=== PATIENT | male | born 1940 | race African-American/Black ===

== ENCOUNTER 2020-02-13 15:54 | Inpatient (IN) ==
[2020-02-13] MEDS ORDERED: Piperacillin/Tazobactam 3.375 GM in Water for inj. (sterile) 20 ML IVP ONE (16:04)
[2020-02-13] MEDS ORDERED: 0.9 % Sodium Chloride 1,000 ML IVC ONE ×2 (16:04→17:23)
[2020-02-13 16:51] LABS: VBG HCO3 24 mEq/L (21-27); VBG PCO2 47 mmHg (41-51); VBG PH 7.32 pH Units (7.32-7.42); VBG PO2 39 mmHg (25-50)
[2020-02-13 16:55] LABS: Hemoglobin 13.7 g/dL (12.9-16.9); Mean Corpuscular HGB Conc 32.6 g/dL (31.6-35.5); Mean Corpuscular Hemoglobin 28.7 pg (28.0-33.3); Mean Corpuscular Volume 88.1 fL (83.0-100.0); Mean Platelet Volume 10.7 fL (9.4-12.4); Platelet Count 225 K/mcL (140-400); Red Blood Count 4.77 M/mcL (4.19-5.50); Red Cell Distribution Width 14.7 % (11.5-14.5); White Blood Count 17.9 K/mcL (4.3-11.1)
[2020-02-13 17:09] LABS: INR 1.3; Prothrombin Time 14.2 Seconds (9.4-12.1)
[2020-02-13 17:12] LABS: Activated Partial Thrombo Time 31.2 Seconds (26.0-36.0)
[2020-02-13 17:27] LABS: Albumin 3.2 g/dL (3.5-5.7); Albumin/Globulin Ratio 0.8 (1.1-2.2); Bilirubin,Direct 0.5 mg/dL (0.0-0.2); Bilirubin,Indirect 0.4 mg/dL (0.0-1.0); Bilirubin,Total 0.9 mg/dL (0.3-1.0); Calcium 8.7 mg/dL (8.6-10.3); Globulin 4.2 g/dL (2.4-3.5); Magnesium 2.1 mg/dL (1.6-2.6); Phosphorous 3.9 mg/dL (2.7-4.5); Potassium 3.9 mEq/L (3.5-5.1); Total Protein 7.4 g/dL (6.4-8.9); Troponin I 0.38 ng/mL (< 0.04)
[2020-02-13] MEDS ORDERED: Aspirin 325 MG TABLET PO ONE (17:30)
[2020-02-13 17:33] LABS: Lymphocytes # 0.4 K/mcL (0.6-4.6); Monocytes # 0.4 K/mcL (0.0-1.3); Neutrophils # 17.2 K/mcL (1.6-8.9)
[2020-02-13 17:34] LABS: Platelet Estimate Normal (Normal)
[2020-02-13] MEDS: DilTIAZem 50 MG in 0.9 % Sodium Chloride 40 ML IVC SCH ×2 (18:11→22:39)
[2020-02-13 18:14] LABS: Bilirubin,Urine Negative (Negative); Blood,Urine Large (Negative); Clarity,Urine Cloudy (Clear); Color,Urine Yellow (Yellow); Glucose,Urine (UA) >=1000 mg/dL (Normal); Ketones,Urine Negative (Negative); Leukocyte Esterase,Urine Negative (Negative); Nitrite,Urine Negative (Negative); Protein,Urine 100 mg/dL (Neg-Trace); Specific Gravity,Urine 1.023 (1.010-1.025); Urobilinogen,Urine Normal (Normal)
[2020-02-13 18:16] LABS: Bacteria,Urine None Seen per hpf (None-Few); Hyaline Casts,Urine None Seen per lpf (None-Few); Squamous Epithelial Cell,Urine Many per lpf (None-Few)
[2020-02-13] MEDS ORDERED: Insulin Regular, Human 100 UNIT/ML SQ ONE (18:16)
[2020-02-13] MEDS ORDERED: *HR* Heparin 5,000 UNIT/ML VIAL IVP PRN ×2 (18:17)
[2020-02-13] MEDS ORDERED: *HR* Heparin 5,000 UNIT/ML VIAL IVP ONE (18:17)
[2020-02-13] MEDS: Heparin 25,000 UNIT/250 ML D5W 25,000 UNIT/250 ML IV.SOLN IVC SCH (19:02)
[2020-02-13] MEDS ORDERED: Insulin Regular, Human 100 UNIT/ML IV PRN (19:48)
[2020-02-13] MEDS ORDERED: Naloxone 0.4 MG/ML INJ IVP PRN ×2 (19:48→22:27)
[2020-02-13] MEDS ORDERED: *HR* Dextrose 50 % in Water (Syg) 50 ML SYRINGE IVP PRN (19:48)
[2020-02-13] MEDS ORDERED: Insulin Human Regular 100 UNIT in 0.9 % Sodium Chloride 100 ML IVC SCH (20:00)
[2020-02-13] MEDS ORDERED: Vancomycin (wt based) 1,000 MG VIAL IVPB SCH (20:00)
[2020-02-13] MEDS: 0.9 % Sodium Chloride 1,000 ML IVC SCH (21:20)
[2020-02-13 21:47] LABS: Troponin I 0.37 ng/mL (< 0.04)
[2020-02-13 22:01] LABS: Estimated Average Glucose 212 mg/dl
[2020-02-13 22:59] LABS: C-Reactive Protein > 300 mg/L (Less than 10); Creatine Kinase 2272 Units/L (30-223)
[2020-02-14] MEDS ORDERED: *HR* Metoprolol 5 MG/5 ML VIAL IVP ONE ×8 (00:40→22:52)
[2020-02-14] MEDS: DilTIAZem 50 MG in 0.9 % Sodium Chloride 40 ML IVC SCH ×2 (00:48→02:52)
[2020-02-14] MEDS ORDERED: D5% in Water 1,000 ML IVC PRN (00:58)
[2020-02-14] MEDS ORDERED: Insulin DETEMIR 100 UNIT/ML X5UNITS SQ ONE (00:58)
[2020-02-14] MEDS ORDERED: Dextrose Gel 15 GM/37.5 ML TUBE PO PRN ×2 (00:58)
[2020-02-14] MEDS ORDERED: *HR* Dextrose 50 % in Water (Syg) 50 ML SYRINGE IVP PRN (00:58)
[2020-02-14] MEDS: MetroNIDAZOLE 500 MG/100 ML 500 MG/100 ML BAG IVPB SCH ×2 (01:10→09:12)
[2020-02-14] MEDS: Insulin LISPRO 300 UNITS/3 ML VIAL SQ SCH ×3 (01:34→12:18)
[2020-02-14 03:02] LABS: Hematocrit 33.4 % (37.5-50.1); Mean Corpuscular HGB Conc 33.8 g/dL (31.6-35.5); Mean Corpuscular Hemoglobin 29.7 pg (28.0-33.3); Mean Corpuscular Volume 87.7 fL (83.0-100.0); Mean Platelet Volume 10.7 fL (9.4-12.4); Platelet Count 195 K/mcL (140-400); Red Blood Count 3.81 M/mcL (4.19-5.50); Red Cell Distribution Width 14.8 % (11.5-14.5); White Blood Count 18.8 K/mcL (4.3-11.1)
[2020-02-14 03:07] LABS: Hemoglobin 11.3 g/dL (12.9-16.9)
[2020-02-14 03:18] LABS: Albumin 2.5 g/dL (3.5-5.7); Albumin/Globulin Ratio 0.8 (1.1-2.2); Bilirubin,Total 0.8 mg/dL (0.3-1.0); Calcium 7.7 mg/dL (8.6-10.3); Globulin 3.3 g/dL (2.4-3.5); Phosphorous 2.9 mg/dL (2.7-4.5); Potassium 4.1 mEq/L (3.5-5.1); Total Protein 5.8 g/dL (6.4-8.9)
[2020-02-14] MEDS ORDERED: Amiodarone Premix 150 MG/100 ML BAG IVPB ONE (03:21)
[2020-02-14] MEDS ORDERED: Amiodarone Premix 360 MG/200 ML BAG IVC ONE (03:21)
[2020-02-14] MEDS ORDERED: Amiodarone Premix 360 MG/200 ML BAG IVC SCH (03:30)
[2020-02-14 03:40] LABS: Hepatitis B Surface Antigen Nonreactive (Nonreactive)
[2020-02-14 04:03] LABS: Lymphocytes # 0.8 K/mcL (0.6-4.6); Neutrophils # 18.1 K/mcL (1.6-8.9); Platelet Estimate Normal (Normal)
[2020-02-14 04:09] LABS: Hepatitis B Core IgM Nonreactive (Nonreactive)
[2020-02-14 04:11] LABS: Hepatitis A Antibody IgM Nonreactive (Nonreactive); Hepatitis C Virus Antibody Nonreactive (Nonreactive)
[2020-02-14 05:10] LABS: ABG Base Excess -5 mEq/L (-2 to 3); ABG HCO3 17 mEq/L (21-27); ABG Oxygen Saturation 98 % (95-98); ABG PCO2 24 mmHg (35-45); ABG PH 7.46 pH Units (7.32-7.45); ABG PO2 102 mmHg (85-104); ABG TCO2 18 mEq/L (20-26)
[2020-02-14] MEDS: Calcium Gluconate 1gm/50mL 1 GM/50 ML BAG IVPB SCH ×3 (05:52→07:38)
[2020-02-14] MEDS ORDERED: Cefepime HCl 1,000 MG in Water for inj. (sterile) 10 ML IVP SCH (06:00)
[2020-02-14 06:58] LABS: Acinetobacter baumannii by PCR Not Detected (Not Detect); Candida albicans by PCR Not Detected (Not Detect); Candida glabrata by PCR Not Detected (Not Detect); Candida krusei by PCR Not Detected (Not Detect); Candida parapsilosis by PCR Not Detected (Not Detect); Candida tropicalis by PCR Not Detected (Not Detect); Enterobacter cloacae Cmplx PCR Not Detected (Not Detect); Enterobacteriaceae by PCR Not Detected (Not Detect); Enterococcus by PCR Not Detected (Not Detect); Escherichia coli by PCR Not Detected (Not Detect); Klebsiella oxytoca by PCR Not Detected (Not Detect); Klebsiella pneumoniae by PCR Not Detected (Not Detect); Proteus by PCR Not Detected (Not Detect); Pseudomonas aeruginosa by PCR Not Detected (Not Detect); Serratia marcescens by PCR Not Detected (Not Detect); Staphylococcus aureus by PCR Not Detected (Not Detect); Staphylococcus by PCR Not Detected (Not Detect); Streptococcus agalactiae(B)PCR Not Detected (Not Detect); Streptococcus pneumoniae PCR Not Detected (Not Detect); Streptococcus pyogenes (A) PCR DETECTED (Not Detect)
[2020-02-14] MEDS ORDERED: Clindamycin 900 MG/50 ML 900 MG/50 ML IV.SOLN IVPB SCH (08:11)
[2020-02-14] MEDS ORDERED: Acetaminophen IV 1,000 MG/100 ML INFUS..BTL IVPB PRN (08:23)
[2020-02-14] MEDS ORDERED: Aminoglycoside Consult 1 EACH MC ONE (08:28)
[2020-02-14 10:49] LABS: Hematocrit 29.9 % (37.5-50.1); Hemoglobin 9.5 g/dL (12.9-16.9); Mean Corpuscular HGB Conc 31.8 g/dL (31.6-35.5); Mean Corpuscular Hemoglobin 28.7 pg (28.0-33.3); Mean Corpuscular Volume 90.3 fL (83.0-100.0); Mean Platelet Volume 11.3 fL (9.4-12.4); Nucleated Red Blood Cells 0.1 /100 WBC (0); Platelet Count 189 K/mcL (140-400); Red Blood Count 3.31 M/mcL (4.19-5.50); White Blood Count 18.9 K/mcL (4.3-11.1)
[2020-02-14 11:00] LABS: Lymphocytes # 1.5 K/mcL (0.6-4.6); Monocytes # 0.4 K/mcL (0.0-1.3)
[2020-02-14 11:02] LABS: Dohle Bodies Present (Not Present); Platelet Estimate Normal (Normal); Toxic Granulation Present (Not Present)
[2020-02-14] MEDS: Heparin 25,000 UNIT/250 ML D5W 25,000 UNIT/250 ML IV.SOLN IVC SCH (11:16)
[2020-02-14] MEDS ORDERED: Piperacillin/Tazobactam 3.375 GM in 0.9 % Sodium Chloride Mini Bag 100 ML IVPB SCH (12:00)
[2020-02-14] MEDS: Pantoprazole 40 MG VIAL IVP SCH ×2 (12:17→17:32)
[2020-02-14] MEDS ORDERED: Vancomycin 500 MG in 0.9 % Sodium Chloride Mini Bag 100 ML IVPB ONE (12:22)
[2020-02-14] MEDS ORDERED: E-Z-PAQUE (BARIUM SULF) SUSP 1 BOTTLE PO ONE (12:55)
[2020-02-14] MEDS ORDERED: E-Z-HD (BARIUM SULF) SUSPENSION PO ONE (12:55)
[2020-02-14] MEDS ORDERED: *HR* Digoxin 0.5 MG/2 ML AMPUL IVP ONE (13:20)
[2020-02-14] MEDS ORDERED: 0.9 % Sodium Chloride 1,000 ML IVC ONE ×2 (13:21→14:38)
[2020-02-14] MEDS ORDERED: 0.9 % Sodium Chloride 1,000 ML IVC SCH (13:30)
[2020-02-14] MEDS ORDERED: Potassium Phosphate 44 MEQ in 0.9 % Sodium Chloride 250 ML IVPB PRN (15:36)
[2020-02-14] MEDS: *HR* Metoprolol 5 MG/5 ML VIAL IVP SCH ×3 (16:40→23:23)
[2020-02-14] MEDS: cefTRIAXone 2,000 MG in Water for inj. (sterile) 20 ML IVP SCH (16:41)
[2020-02-14] MEDS: Clindamycin 600 MG/50 ML 600 MG/50 ML IV.SOLN IVPB SCH ×2 (16:41→23:18)
[2020-02-14 16:54] LABS: Mean Corpuscular HGB Conc 32.1 g/dL (31.6-35.5); Mean Corpuscular Hemoglobin 29.1 pg (28.0-33.3); Mean Corpuscular Volume 90.6 fL (83.0-100.0); Mean Platelet Volume 11.2 fL (9.4-12.4); Platelet Count 179 K/mcL (140-400); Red Blood Count 3.09 M/mcL (4.19-5.50); Red Cell Distribution Width 15.1 % (11.5-14.5); White Blood Count 15.7 K/mcL (4.3-11.1)
[2020-02-14 17:03] LABS: VBG Ionized Calcium 1.05 mmol/L (1.15-1.35)
[2020-02-14] MEDS: Insulin Human Regular 100 UNIT in 0.9 % Sodium Chloride 100 ML IVC SCH ×2 (17:08→23:18)
[2020-02-14] MEDS: 0.9 % Sodium Chloride 1,000 ML IVC SCH (17:19)
[2020-02-14] MEDS: *HR* Digoxin 0.5 MG/2 ML AMPUL IVP SCH (17:32)
[2020-02-14] MEDS: Ringers Solution, Lactated 1,000 ML IVC SCH (20:13)
[2020-02-14] MEDS: *HR* Digoxin 0.5 MG/2 ML AMPUL IVP ONE (21:35)
[2020-02-14 22:55] LABS: Calcium 7.5 mg/dL (8.6-10.3)
[2020-02-14] MEDS ORDERED: Perflutren Lipid Microsphere 1.3 ML in 0.9 % Sodium Chloride 8.7 ML IVP ONE (23:08)
[2020-02-15] MEDS: *HR* Digoxin 0.5 MG/2 ML AMPUL IVP SCH (00:42)
[2020-02-15] MEDS: *HR* Digoxin 0.5 MG/2 ML AMPUL IVP ONE (00:42)
[2020-02-15] MEDS ORDERED: Norepinephrine 4 MG in 0.9 % Sodium Chloride 250 ML IVC SCH (00:45)
[2020-02-15] MEDS ORDERED: Phenylephrine 10 MG in 0.9 % Sodium Chloride 250 ML IVC SCH (00:45)
[2020-02-15] MEDS: *HR* Metoprolol 5 MG/5 ML VIAL IVP SCH ×9 (01:48→19:34)
[2020-02-15] MEDS: Calcium Gluconate 1gm/50mL 1 GM/50 ML BAG IVPB PRN (02:04)
[2020-02-15 02:12] LABS: Hemoglobin 9.6 g/dL (12.9-16.9)
[2020-02-15 03:17] LABS: Hematocrit 29.7 % (37.5-50.1); Hemoglobin 9.5 g/dL (12.9-16.9); Mean Corpuscular Hemoglobin 28.3 pg (28.0-33.3); Mean Corpuscular Volume 88.4 fL (83.0-100.0); Mean Platelet Volume 10.7 fL (9.4-12.4); Nucleated Red Blood Cells 0.2 /100 WBC (0); Platelet Count 204 K/mcL (140-400); Red Blood Count 3.36 M/mcL (4.19-5.50); Red Cell Distribution Width 14.9 % (11.5-14.5); White Blood Count 18.9 K/mcL (4.3-11.1)
[2020-02-15 03:38] LABS: Blood Urea Nitrogen > 130 mg/dL (8-23); Calcium 8.1 mg/dL (8.6-10.3); Carbon Dioxide 16 mEq/L (23-29); Chloride 113 mEq/L (98-107); Glucose 93 mg/dL (70-105); Magnesium 2.2 mg/dL (1.6-2.6); Phosphorous 4.4 mg/dL (2.7-4.5); Potassium 4.5 mEq/L (3.5-5.1); Sodium 142 mEq/L (136-145); eGFR For African Americans 16 (> 60); eGFR For Non-African Americans 13 (> 60)
[2020-02-15 04:56] LABS: Lymphocytes # 0.4 K/mcL (0.6-4.6); Neutrophils # 18.5 K/mcL (1.6-8.9); Platelet Estimate Normal (Normal)
[2020-02-15 04:57] LABS: Anisocytosis 1+ (Not Present); Dohle Bodies Present (Not Present); Polychromasia 1+ (Not Present)
[2020-02-15] MEDS: Ringers Solution, Lactated 1,000 ML IVC SCH ×3 (05:17→23:50)
[2020-02-15] MEDS: Pantoprazole 40 MG VIAL IVP SCH ×2 (05:24→16:25)
[2020-02-15] MEDS ORDERED: Sodium Bicarbonate 50 MEQ/50 ML VIAL IVP ONE (07:23)
[2020-02-15 07:28] LABS: ABG Base Excess -9 mEq/L (-2 to 3); ABG HCO3 16 mEq/L (21-27); ABG Oxygen Saturation 96 % (95-98); ABG PCO2 32 mmHg (35-45); ABG PH 7.31 pH Units (7.32-7.45); ABG PO2 91 mmHg (85-104); ABG TCO2 17 mEq/L (20-26)
[2020-02-15] MEDS: Clindamycin 600 MG/50 ML 600 MG/50 ML IV.SOLN IVPB SCH ×3 (08:48→23:13)
[2020-02-15 09:04] LABS: INR 1.3; Prothrombin Time 15.1 Seconds (9.4-12.1)
[2020-02-15] MEDS ORDERED: 0.9 % Sodium Chloride 1,000 ML IVC SCH (09:15)
[2020-02-15] MEDS ORDERED: Lidocaine -MPF 1% 5 ML AMPUL INFILT ONE (09:16)
[2020-02-15 09:18] LABS: Chol/HDL Ratio 5.6 (0-4.9)
[2020-02-15 10:01] LABS: Troponin I 0.33 ng/mL (< 0.04)
[2020-02-15 14:29] LABS: Hematocrit 33.7 % (37.5-50.1); Hemoglobin 10.6 g/dL (12.9-16.9); Mean Corpuscular HGB Conc 31.5 g/dL (31.6-35.5); Mean Corpuscular Hemoglobin 28.6 pg (28.0-33.3); Mean Corpuscular Volume 90.8 fL (83.0-100.0); Mean Platelet Volume 10.9 fL (9.4-12.4); Platelet Count 228 K/mcL (140-400); Red Blood Count 3.71 M/mcL (4.19-5.50); Red Cell Distribution Width 15.4 % (11.5-14.5); White Blood Count 21.4 K/mcL (4.3-11.1)
[2020-02-15] MEDS: cefTRIAXone 2,000 MG in Water for inj. (sterile) 20 ML IVP SCH (16:25)
[2020-02-16 05:28] LABS: Calcium 8.2 mg/dL (8.6-10.3); Magnesium 2.2 mg/dL (1.6-2.6); Phosphorous 3.7 mg/dL (2.7-4.5); Potassium 4.2 mEq/L (3.5-5.1)
[2020-02-16 05:53] LABS: Basophils % 0.2 %; Eosinophils % 0.1 %; Hematocrit 30.4 % (37.5-50.1); Hemoglobin 9.9 g/dL (12.9-16.9); Immature Granulocytes % 0.8 % (0-4); Lymphocytes # 0.8 K/mcL (0.6-4.6); Mean Corpuscular HGB Conc 32.6 g/dL (31.6-35.5); Mean Corpuscular Hemoglobin 29.1 pg (28.0-33.3); Mean Corpuscular Volume 89.4 fL (83.0-100.0); Mean Platelet Volume 11.2 fL (9.4-12.4); Monocytes # 0.3 K/mcL (0.0-1.3); Monocytes % 1.5 %; Neutrophils # 18.7 K/mcL (1.6-8.9); Platelet Count 213 K/mcL (140-400); Red Cell Distribution Width 15.3 % (11.5-14.5); Segmented Neutrophils % 93.4 %
[2020-02-16] MEDS: Pantoprazole 40 MG VIAL IVP SCH ×2 (06:04→15:46)
[2020-02-16] MEDS: Clindamycin 600 MG/50 ML 600 MG/50 ML IV.SOLN IVPB SCH ×3 (08:37→23:06)
[2020-02-16 11:51] LABS: VBG Ionized Calcium 0.99 mmol/L (1.15-1.35)
[2020-02-16] MEDS: Calcium Gluconate 1gm/50mL 1 GM/50 ML BAG IVPB PRN (13:35)
[2020-02-16] MEDS: Ringers Solution, Lactated 1,000 ML IVC SCH ×2 (15:37→20:53)
[2020-02-16] MEDS: risperiDONE 0.25 MG TABLET PO SCH (15:37)
[2020-02-16] MEDS: cefTRIAXone 2,000 MG in Water for inj. (sterile) 20 ML IVP SCH (15:46)
[2020-02-16] MEDS: Phenylephrine 10 MG in 0.9 % Sodium Chloride 250 ML IVC SCH ×2 (16:45→23:13)
[2020-02-16 16:46] LABS: Hematocrit 26.6 % (37.5-50.1); Hemoglobin 8.5 g/dL (12.9-16.9); Mean Corpuscular Hemoglobin 28.8 pg (28.0-33.3); Mean Corpuscular Volume 90.2 fL (83.0-100.0); Mean Platelet Volume 11.2 fL (9.4-12.4); Platelet Count 222 K/mcL (140-400); Red Blood Count 2.95 M/mcL (4.19-5.50); Red Cell Distribution Width 15.4 % (11.5-14.5); White Blood Count 19.6 K/mcL (4.3-11.1)
[2020-02-16 16:52] LABS: INR 1.6; Prothrombin Time 17.9 Seconds (9.4-12.1)
[2020-02-16 17:07] LABS: Alanine Aminotransferase 61 Units/L (7-52); Albumin 2.2 g/dL (3.5-5.7); Albumin/Globulin Ratio 0.7 (1.1-2.2); Alkaline Phosphatase 90 Units/L (34-104); Aspartate Amino Transferase 51 Units/L (13-39); Bilirubin,Total 0.3 mg/dL (0.3-1.0); Blood Urea Nitrogen > 130 mg/dL (8-23); Calcium 7.9 mg/dL (8.6-10.3); Carbon Dioxide 16 mEq/L (23-29); Chloride 119 mEq/L (98-107); Globulin 3.2 g/dL (2.4-3.5); Glucose 243 mg/dL (70-105); Potassium 4.4 mEq/L (3.5-5.1); Sodium 145 mEq/L (136-145); Total Protein 5.4 g/dL (6.4-8.9); eGFR For African Americans 13 (> 60); eGFR For Non-African Americans 11 (> 60)
[2020-02-16] MEDS ORDERED: Ringers Solution, Lactated 1,000 ML IVC ONE (18:10)
[2020-02-16 18:38] LABS: Troponin I 0.27 ng/mL (< 0.04)
[2020-02-16] MEDS: Insulin Human Regular 100 UNIT in 0.9 % Sodium Chloride 100 ML IVC SCH (18:40)
[2020-02-16] MEDS: Albumin Human 5% 12.5 GM/250 ML IV.SOLN IVC SCH ×2 (18:43→22:53)
[2020-02-17 00:12] LABS: Protein/Creatinine Ratio,Urine 0.91 mg/mg (0.00-0.20); Sodium, Urine 52.2 mEq/L
[2020-02-17 00:21] LABS: Blood Urea Nitrogen > 130 mg/dL (8-23); Carbon Dioxide 17 mEq/L (23-29); Chloride 120 mEq/L (98-107); Glucose 103 mg/dL (70-105); Potassium 4.2 mEq/L (3.5-5.1); Sodium 149 mEq/L (136-145); eGFR For African Americans 13 (> 60); eGFR For Non-African Americans 11 (> 60)
[2020-02-17 00:53] LABS: Bilirubin,Urine Negative (Negative); Blood,Urine Moderate (Negative); Clarity,Urine Clear (Clear); Color,Urine Yellow (Yellow); Glucose,Urine (UA) Normal (Normal); Ketones,Urine Negative (Negative); Leukocyte Esterase,Urine Negative (Negative); Nitrite,Urine Negative (Negative); PH,Urine 5.5 pH Units (5.0-8.0); Protein,Urine Trace mg/dL (Neg-Trace); Urobilinogen,Urine Normal (Normal)
[2020-02-17] MEDS: Pantoprazole 40 MG VIAL IVP SCH ×2 (05:15→18:04)
[2020-02-17 06:36] LABS: Basophils % 0.2 %; Eosinophils # 0.1 K/mcL (0.0-0.6); Eosinophils % 0.4 %; Hematocrit 24.6 % (37.5-50.1); Immature Granulocytes % 2.1 % (0-4); Lymphocytes # 0.9 K/mcL (0.6-4.6); Lymphocytes % 4.9 %; Mean Corpuscular HGB Conc 32.5 g/dL (31.6-35.5); Mean Corpuscular Hemoglobin 29.2 pg (28.0-33.3); Mean Corpuscular Volume 89.8 fL (83.0-100.0); Mean Platelet Volume 10.9 fL (9.4-12.4); Monocytes # 0.2 K/mcL (0.0-1.3); Monocytes % 1.3 %; Neutrophils # 16.6 K/mcL (1.6-8.9); Nucleated Red Blood Cells 0.2 /100 WBC (0); Platelet Count 214 K/mcL (140-400); Red Blood Count 2.74 M/mcL (4.19-5.50); Red Cell Distribution Width 15.4 % (11.5-14.5); Segmented Neutrophils % 91.1 %; White Blood Count 18.3 K/mcL (4.3-11.1)
[2020-02-17 07:07] LABS: Blood Urea Nitrogen > 130 mg/dL (8-23); Calcium 8.1 mg/dL (8.6-10.3); Carbon Dioxide 17 mEq/L (23-29); Chloride 118 mEq/L (98-107); Glucose 139 mg/dL (70-105); Magnesium 2.4 mg/dL (1.6-2.6); Phosphorous 6.9 mg/dL (2.7-4.5); Potassium 4.4 mEq/L (3.5-5.1); Sodium 151 mEq/L (136-145); eGFR For African Americans 14 (> 60); eGFR For Non-African Americans 12 (> 60)
[2020-02-17] MEDS: Clindamycin 600 MG/50 ML 600 MG/50 ML IV.SOLN IVPB SCH ×3 (08:33→23:06)
[2020-02-17] MEDS: risperiDONE 0.25 MG TABLET PO SCH ×2 (08:34→12:36)
[2020-02-17] MEDS ORDERED: *HR* Metoprolol 5 MG/5 ML VIAL IVP PRN (10:06)
[2020-02-17] MEDS: Phenylephrine 10 MG in 0.9 % Sodium Chloride 250 ML IVC SCH ×2 (10:43→15:00)
[2020-02-17] MEDS: Ringers Solution, Lactated 1,000 ML IVC SCH (10:46)
[2020-02-17] MEDS: Albumin Human 5% 12.5 GM/250 ML IV.SOLN IVC SCH ×2 (11:18→18:00)
[2020-02-17 11:34] LABS: Troponin I 0.26 ng/mL (< 0.04)
[2020-02-17 12:04] LABS: Albumin 2.5 g/dL (3.5-5.7); Albumin/Globulin Ratio 0.8 (1.1-2.2); Bilirubin,Direct 0.1 mg/dL (0.0-0.2); Bilirubin,Indirect 0.3 mg/dL (0.0-1.0); Bilirubin,Total 0.4 mg/dL (0.3-1.0); Globulin 3.2 g/dL (2.4-3.5); Total Protein 5.7 g/dL (6.4-8.9)
[2020-02-17] MEDS: *HR* Metoprolol 5 MG/5 ML VIAL IVP PRN ×5 (12:30→23:48)
[2020-02-17] MEDS: Insulin LISPRO 300 UNITS/3 ML VIAL SQ SCH ×4 (12:37→23:20)
[2020-02-17 15:01] LABS: Hematocrit 26.1 % (37.5-50.1); Hemoglobin 8.3 g/dL (12.9-16.9)
[2020-02-17] MEDS: cefTRIAXone 2,000 MG in Water for inj. (sterile) 20 ML IVP SCH (18:03)
[2020-02-17] MEDS ORDERED: Albumin Human 5% 12.5 GM/250 ML IV.SOLN IVPB ONE (23:46)
[2020-02-18] MEDS: *HR* Metoprolol 5 MG/5 ML VIAL IVP PRN ×3 (02:03→07:53)
[2020-02-18 03:27] LABS: Basophils % 0.2 %; Eosinophils # 0.1 K/mcL (0.0-0.6); Eosinophils % 0.5 %; Hematocrit 23.6 % (37.5-50.1); Hemoglobin 7.6 g/dL (12.9-16.9); Immature Granulocytes % 1.6 % (0-4); Lymphocytes # 0.7 K/mcL (0.6-4.6); Lymphocytes % 5.3 %; Mean Corpuscular HGB Conc 32.2 g/dL (31.6-35.5); Mean Corpuscular Hemoglobin 28.6 pg (28.0-33.3); Mean Corpuscular Volume 88.7 fL (83.0-100.0); Mean Platelet Volume 10.8 fL (9.4-12.4); Monocytes # 0.2 K/mcL (0.0-1.3); Monocytes % 1.3 %; Neutrophils # 11.6 K/mcL (1.6-8.9); Nucleated Red Blood Cells 0.4 /100 WBC (0); Platelet Count 238 K/mcL (140-400); Red Blood Count 2.66 M/mcL (4.19-5.50); Red Cell Distribution Width 15.9 % (11.5-14.5); Segmented Neutrophils % 91.1 %; White Blood Count 12.7 K/mcL (4.3-11.1)
[2020-02-18 03:46] LABS: Albumin 3.1 g/dL (3.5-5.7); Albumin/Globulin Ratio 1.1 (1.1-2.2); Bilirubin,Direct 0.2 mg/dL (0.0-0.2); Bilirubin,Indirect 0.3 mg/dL (0.0-1.0); Bilirubin,Total 0.5 mg/dL (0.3-1.0); Globulin 2.9 g/dL (2.4-3.5); Uric Acid 15.4 mg/dL (2.3-7.6)
[2020-02-18 03:47] LABS: Blood Urea Nitrogen > 130 mg/dL (8-23); Calcium 8.3 mg/dL (8.6-10.3); Carbon Dioxide 16 mEq/L (23-29); Chloride 124 mEq/L (98-107); Glucose 143 mg/dL (70-105); Magnesium 2.4 mg/dL (1.6-2.6); Phosphorous 5.8 mg/dL (2.7-4.5); Potassium 4.4 mEq/L (3.5-5.1); Sodium 154 mEq/L (136-145); eGFR For African Americans 14 (> 60); eGFR For Non-African Americans 12 (> 60)
[2020-02-18] MEDS: Insulin LISPRO 300 UNITS/3 ML VIAL SQ SCH ×6 (03:48→23:53)
[2020-02-18] MEDS: Pantoprazole 40 MG VIAL IVP SCH (05:43)
[2020-02-18] MEDS ORDERED: 0.9 % Sodium Chloride 250 ML IVC SCH (06:30)
[2020-02-18] MEDS ORDERED: Lidocaine -MPF 2% 2 ML VIAL ONE (07:09)
[2020-02-18] MEDS ORDERED: *HR* PHENYLEPHRINE 1,000 MCG/10 ML SYRINGE IVP ONE (08:10)
[2020-02-18] MEDS: Clindamycin 600 MG/50 ML 600 MG/50 ML IV.SOLN IVPB SCH (08:15)
[2020-02-18] MEDS: risperiDONE 0.25 MG TABLET PO SCH (08:16)
[2020-02-18] MEDS: D5% in Water 1,000 ML IVC SCH ×2 (08:25→18:49)
[2020-02-18] MEDS: Pantoprazole 40 MG in 0.9 % Sodium Chloride Mini Bag 100 ML IVC SCH ×4 (08:58→23:44)
[2020-02-18] MEDS ORDERED: EPINEPHrine 1 MG/ML VIAL SQ STA (09:31)
[2020-02-18] MEDS ORDERED: *HR* EPINEPHrine 1 MG/10 ML SYRINGE ONE (09:37)
[2020-02-18] MEDS ORDERED: *HR* Alteplase (Cathflo) 2 MG VIAL IVP ONE ×2 (11:28→14:03)
[2020-02-18] MEDS: cefTRIAXone 2,000 MG in Water for inj. (sterile) 20 ML IVP SCH (17:10)
[2020-02-18 17:31] LABS: Blood Urea Nitrogen > 130 mg/dL (8-23); Calcium 8.2 mg/dL (8.6-10.3); Carbon Dioxide 17 mEq/L (23-29); Chloride 124 mEq/L (98-107); Glucose 263 mg/dL (70-105); Potassium 4.3 mEq/L (3.5-5.1); Sodium 152 mEq/L (136-145); eGFR For African Americans 17 (> 60); eGFR For Non-African Americans 14 (> 60)
[2020-02-18 17:32] LABS: Hematocrit 27.3 % (37.5-50.1); Hemoglobin 8.9 g/dL (12.9-16.9)
[2020-02-18] MEDS ORDERED: D5% in Water 1,000 ML IVC SCH (22:00)
[2020-02-19] MEDS: Pantoprazole 40 MG in 0.9 % Sodium Chloride Mini Bag 100 ML IVC SCH ×4 (03:59→21:13)
[2020-02-19 04:23] LABS: Basophils % 0.2 %; Eosinophils # 0.1 K/mcL (0.0-0.6); Eosinophils % 0.8 %; Hematocrit 26.7 % (37.5-50.1); Hemoglobin 8.7 g/dL (12.9-16.9); Immature Granulocytes % 1.7 % (0-4); Lymphocytes # 0.9 K/mcL (0.6-4.6); Lymphocytes % 7.2 %; Mean Corpuscular HGB Conc 32.6 g/dL (31.6-35.5); Mean Corpuscular Hemoglobin 28.9 pg (28.0-33.3); Mean Corpuscular Volume 88.7 fL (83.0-100.0); Monocytes # 0.2 K/mcL (0.0-1.3); Monocytes % 1.8 %; Neutrophils # 11.2 K/mcL (1.6-8.9); Nucleated Red Blood Cells 0.2 /100 WBC (0); Platelet Count 260 K/mcL (140-400); Red Blood Count 3.01 M/mcL (4.19-5.50); Red Cell Distribution Width 16.1 % (11.5-14.5); Segmented Neutrophils % 88.3 %; White Blood Count 12.7 K/mcL (4.3-11.1)
[2020-02-19 04:46] LABS: Blood Urea Nitrogen > 130 mg/dL (8-23); Carbon Dioxide 19 mEq/L (23-29); Chloride 123 mEq/L (98-107); Glucose 259 mg/dL (70-105); Magnesium 2.1 mg/dL (1.6-2.6); Phosphorous 4.4 mg/dL (2.7-4.5); Sodium 152 mEq/L (136-145); eGFR For African Americans 16 (> 60); eGFR For Non-African Americans 14 (> 60)
[2020-02-19] MEDS: Insulin LISPRO 300 UNITS/3 ML VIAL SQ SCH ×10 (04:53→23:23)
[2020-02-19] MEDS: D5% in Water 1,000 ML IVC SCH ×3 (08:37→22:25)
[2020-02-19] MEDS: risperiDONE 0.25 MG TABLET PO SCH (09:20)
[2020-02-19 13:34] LABS: Calcium 8.1 mg/dL (8.6-10.3); Potassium 3.8 mEq/L (3.5-5.1)
[2020-02-19] MEDS: cefTRIAXone 2,000 MG in Water for inj. (sterile) 20 ML IVP SCH (17:09)
[2020-02-19 18:26] LABS: Potassium 4.5 mEq/L (3.5-5.1)
[2020-02-19 19:24] LABS: Potassium 4.4 mEq/L (3.5-5.1)
[2020-02-19] MEDS: *HR* Metoprolol 5 MG/5 ML VIAL IVP PRN ×2 (19:45→21:47)
[2020-02-19] MEDS ORDERED: Insulin LISPRO 300 UNITS/3 ML VIAL SQ SCH (21:00)
[2020-02-20] MEDS: *HR* Metoprolol 5 MG/5 ML VIAL IVP PRN ×11 (00:37→23:15)
[2020-02-20] MEDS: D5% in Water 1,000 ML IVC SCH ×2 (03:16→20:43)
[2020-02-20] MEDS: Pantoprazole 40 MG in 0.9 % Sodium Chloride Mini Bag 100 ML IVC SCH ×4 (03:16→17:37)
[2020-02-20 04:07] LABS: Basophils % 0.2 %; Eosinophils # 0.1 K/mcL (0.0-0.6); Eosinophils % 0.8 %; Hematocrit 27.1 % (37.5-50.1); Hemoglobin 8.6 g/dL (12.9-16.9); Immature Granulocytes % 1.4 % (0-4); Lymphocytes # 1.1 K/mcL (0.6-4.6); Lymphocytes % 8.5 %; Mean Corpuscular HGB Conc 31.7 g/dL (31.6-35.5); Mean Corpuscular Hemoglobin 28.9 pg (28.0-33.3); Mean Corpuscular Volume 90.9 fL (83.0-100.0); Mean Platelet Volume 10.8 fL (9.4-12.4); Monocytes # 0.3 K/mcL (0.0-1.3); Neutrophils # 11.6 K/mcL (1.6-8.9); Platelet Count 275 K/mcL (140-400); Red Blood Count 2.98 M/mcL (4.19-5.50); Red Cell Distribution Width 16.7 % (11.5-14.5); Segmented Neutrophils % 87.1 %; White Blood Count 13.3 K/mcL (4.3-11.1)
[2020-02-20 04:27] LABS: Magnesium 1.8 mg/dL (1.6-2.6); Phosphorous 4.1 mg/dL (2.7-4.5); Potassium 4.2 mEq/L (3.5-5.1)
[2020-02-20] MEDS: Insulin LISPRO 300 UNITS/3 ML VIAL SQ SCH ×4 (06:14→23:13)
[2020-02-20] MEDS: risperiDONE 0.25 MG TABLET PO SCH (09:53)
[2020-02-20] MEDS: cefTRIAXone 2,000 MG in Water for inj. (sterile) 20 ML IVP SCH (17:36)
[2020-02-20] MEDS: Phenylephrine 10 MG in 0.9 % Sodium Chloride 250 ML IVC SCH (20:06)
[2020-02-21] MEDS: Pantoprazole 40 MG in 0.9 % Sodium Chloride Mini Bag 100 ML IVC SCH ×3 (00:18→10:43)
[2020-02-21] MEDS: *HR* Metoprolol 5 MG/5 ML VIAL IVP PRN ×6 (00:19→06:32)
[2020-02-21 04:02] LABS: Basophils % 0.2 %; Eosinophils # 0.1 K/mcL (0.0-0.6); Eosinophils % 0.3 %; Hematocrit 23.6 % (37.5-50.1); Hemoglobin 7.4 g/dL (12.9-16.9); Immature Granulocytes % 0.9 % (0-4); Lymphocytes # 1.4 K/mcL (0.6-4.6); Lymphocytes % 8.2 %; Mean Corpuscular HGB Conc 31.4 g/dL (31.6-35.5); Mean Corpuscular Hemoglobin 29.1 pg (28.0-33.3); Mean Corpuscular Volume 92.9 fL (83.0-100.0); Mean Platelet Volume 10.9 fL (9.4-12.4); Monocytes # 0.4 K/mcL (0.0-1.3); Monocytes % 2.1 %; Neutrophils # 15.2 K/mcL (1.6-8.9); Platelet Count 305 K/mcL (140-400); Red Blood Count 2.54 M/mcL (4.19-5.50); Red Cell Distribution Width 17.1 % (11.5-14.5); Segmented Neutrophils % 88.3 %; White Blood Count 17.2 K/mcL (4.3-11.1)
[2020-02-21 04:13] LABS: INR 1.4; Prothrombin Time 15.6 Seconds (9.4-12.1)
[2020-02-21 04:22] LABS: Albumin 2.5 g/dL (3.5-5.7); Albumin/Globulin Ratio 0.8 (1.1-2.2); Bilirubin,Direct 0.2 mg/dL (0.0-0.2); Bilirubin,Indirect 0.3 mg/dL (0.0-1.0); Bilirubin,Total 0.5 mg/dL (0.3-1.0); Calcium 8.1 mg/dL (8.6-10.3); Globulin 3.3 g/dL (2.4-3.5); Potassium 4.8 mEq/L (3.5-5.1); Total Protein 5.8 g/dL (6.4-8.9)
[2020-02-21] MEDS: Insulin LISPRO 300 UNITS/3 ML VIAL SQ SCH ×3 (05:11→17:59)
[2020-02-21 10:08] LABS: Creatine Kinase 420 Units/L (30-223)
[2020-02-21] MEDS: risperiDONE 0.25 MG TABLET PO SCH (10:43)
[2020-02-21] MEDS ORDERED: Fluconazole 400 MG/200 ML 400 MG/200 ML BAG IVPB ONE (11:24)
[2020-02-21] MEDS ORDERED: Cefepime HCl 1,000 MG in Water for inj. (sterile) 10 ML IVP SCH (12:00)
[2020-02-21 12:01] LABS: C-Reactive Protein 82 mg/L (Less than 10)
[2020-02-21] MEDS: MetroNIDAZOLE 500 MG/100 ML 500 MG/100 ML BAG IVPB SCH ×2 (12:01→20:36)
[2020-02-21 12:19] LABS: Adenovirus F 40/41 PCR Not detected (Not detect); Astrovirus PCR Not detected (Not detect); C.difficile Toxin A/B Gene PCR Not detected (Not detect); Campylobacter by PCR Not detected (Not detect); Cryptosporidium by PCR Not detected (Not detect); Cyclospora cayetanensis PCR Not detected (Not detect); E. coli O157 by PCR Not detected (Not detect); Entamoeba histolytica PCR Not detected (Not detect); Enteroaggregative E.coli(EAEC) Not detected (Not detect); Enteropathogenic E.coli(EPEC) Not detected (Not detect); Enterotoxigenic E.coli (ETEC) Not detected (Not detect); Giardia lamblia PCR Not detected (Not detect); Norovirus GI/GII PCR Not detected (Not detect); Plesiomonas shigelloides PCR Not detected (Not detect); Rotavirus A PCR Not detected (Not detect); Salmonella PCR Not detected (Not detect); Sapovirus PCR Not detected (Not detect); Shig/EnteroinvasiveE coli EIEC Not detected (Not detect); Shigalike tox-prod E coli STEC Not detected (Not detect); Vibrio PCR Not detected (Not detect); Vibrio cholerae PCR Not detected (Not detect); Yersinia enterocolitica PCR Not detected (Not detect)
[2020-02-21] MEDS: Phenylephrine 10 MG in 0.9 % Sodium Chloride 250 ML IVC SCH ×2 (17:53→23:14)
[2020-02-21] MEDS ORDERED: Pantoprazole 40 MG VIAL IVP SCH (18:00)
[2020-02-21] MEDS ORDERED: *HR* Midazolam HCl 2 MG/2 ML VIAL ONE (18:32)
[2020-02-21] MEDS ORDERED: *HR* Propofol 200 MG/20 ML VIAL IVP ONE (18:32)
[2020-02-21 21:03] LABS: Blood Urea Nitrogen > 130 mg/dL (8-23); Calcium 8.1 mg/dL (8.6-10.3); Carbon Dioxide 16 mEq/L (23-29); Chloride 126 mEq/L (98-107); Glucose 203 mg/dL (70-105); Potassium 4.6 mEq/L (3.5-5.1); Sodium 152 mEq/L (136-145); eGFR For African Americans 19 (> 60); eGFR For Non-African Americans 16 (> 60)
[2020-02-21] MEDS ORDERED: Calcium Gluconate 1gm/50mL 1 GM/50 ML BAG IVPB PRN (21:38)
[2020-02-21] MEDS ORDERED: Dextrose Gel 15 GM/37.5 ML TUBE PO PRN ×2 (21:38)
[2020-02-21] MEDS ORDERED: *HR* Dextrose 50 % in Water (Syg) 50 ML SYRINGE IVP PRN (21:38)
[2020-02-21] MEDS ORDERED: Potassium Phosphate 44 MEQ in 0.9 % Sodium Chloride 250 ML IVPB PRN (21:38)
[2020-02-21] MEDS ORDERED: D5% in Water 1,000 ML IVC PRN (21:38)
[2020-02-21] MEDS ORDERED: Naloxone 0.4 MG/ML INJ IVP PRN (21:38)
[2020-02-21] MEDS ORDERED: Acetaminophen IV 1,000 MG/100 ML INFUS..BTL IVPB PRN (21:38)
[2020-02-21] MEDS ORDERED: Desitin (Zinc Oxide) 56 GM TUBE TP PRN (22:33)
[2020-02-22] MEDS: Cefepime HCl 1,000 MG in Water for inj. (sterile) 10 ML IVP SCH ×3 (00:11→23:27)
[2020-02-22] MEDS: Insulin LISPRO 300 UNITS/3 ML VIAL SQ SCH ×6 (00:15→23:27)
[2020-02-22] MEDS: MetroNIDAZOLE 500 MG/100 ML 500 MG/100 ML BAG IVPB SCH ×3 (04:02→20:28)
[2020-02-22 04:23] LABS: Basophils % 0.2 %; Eosinophils % 0.2 %; Hematocrit 19.9 % (37.5-50.1); Hemoglobin 6.2 g/dL (12.9-16.9); Immature Granulocytes % 0.6 % (0-4); Lymphocytes # 1.1 K/mcL (0.6-4.6); Lymphocytes % 7.2 %; Mean Corpuscular HGB Conc 31.2 g/dL (31.6-35.5); Mean Corpuscular Hemoglobin 29.1 pg (28.0-33.3); Mean Corpuscular Volume 93.4 fL (83.0-100.0); Monocytes # 0.4 K/mcL (0.0-1.3); Monocytes % 2.3 %; Neutrophils # 13.8 K/mcL (1.6-8.9); Nucleated Red Blood Cells 0.1 /100 WBC (0); Platelet Count 298 K/mcL (140-400); Red Blood Count 2.13 M/mcL (4.19-5.50); Red Cell Distribution Width 17.2 % (11.5-14.5); Segmented Neutrophils % 89.5 %; White Blood Count 15.5 K/mcL (4.3-11.1)
[2020-02-22 04:41] LABS: VBG Ionized Calcium 1.21 mmol/L (1.15-1.35)
[2020-02-22 04:45] LABS: Albumin 2.4 g/dL (3.5-5.7); Albumin/Globulin Ratio 0.7 (1.1-2.2); Bilirubin,Total 0.4 mg/dL (0.3-1.0); Calcium 8.2 mg/dL (8.6-10.3); Globulin 3.4 g/dL (2.4-3.5); Magnesium 2.4 mg/dL (1.6-2.6); Phosphorous 6.3 mg/dL (2.7-4.5); Potassium 4.7 mEq/L (3.5-5.1); Total Protein 5.8 g/dL (6.4-8.9)
[2020-02-22] MEDS ORDERED: 0.9 % Sodium Chloride 250 ML ONE ×2 (05:44→20:39)
[2020-02-22] MEDS: Pantoprazole 40 MG VIAL IVP SCH ×2 (05:52→17:42)
[2020-02-22] MEDS ORDERED: Fluconazole 200 MG/100 ML 200 MG/100 ML BAG IVPB SCH (09:00)
[2020-02-22] MEDS: Fluconazole 200 MG/100 ML 200 MG/100 ML BAG IVPB SCH (09:20)
[2020-02-22] MEDS: risperiDONE 0.25 MG TABLET PO SCH (09:22)
[2020-02-22] MEDS ORDERED: D10% in Water 500 ML IVC PRN (11:57)
[2020-02-22 13:13] LABS: Hematocrit 24.6 % (37.5-50.1); Hemoglobin 7.3 g/dL (12.9-16.9); Mean Corpuscular HGB Conc 29.7 g/dL (31.6-35.5); Mean Corpuscular Hemoglobin 28.6 pg (28.0-33.3); Mean Corpuscular Volume 96.5 fL (83.0-100.0); Mean Platelet Volume 10.9 fL (9.4-12.4); Platelet Count 288 K/mcL (140-400); Red Blood Count 2.55 M/mcL (4.19-5.50); Red Cell Distribution Width 17.1 % (11.5-14.5); White Blood Count 13.2 K/mcL (4.3-11.1)
[2020-02-22] MEDS: D5% in Water 1,000 ML IVC SCH ×2 (15:12→21:35)
[2020-02-22] MEDS ORDERED: Clinimix 5%-20% SOLUTION 2,000 ML with MVI, adult with vitamin K 10 ML, Sodium Acetat... IVC SCH (17:00)
[2020-02-22 18:07] LABS: Hematocrit 21.6 % (37.5-50.1); Hemoglobin 6.8 g/dL (12.9-16.9); Mean Corpuscular HGB Conc 31.5 g/dL (31.6-35.5); Mean Corpuscular Hemoglobin 29.3 pg (28.0-33.3); Mean Corpuscular Volume 93.1 fL (83.0-100.0); Mean Platelet Volume 10.9 fL (9.4-12.4); Platelet Count 282 K/mcL (140-400); Red Blood Count 2.32 M/mcL (4.19-5.50); Red Cell Distribution Width 17.2 % (11.5-14.5); White Blood Count 14.4 K/mcL (4.3-11.1)
[2020-02-22 18:31] LABS: Blood Urea Nitrogen > 130 mg/dL (8-23); Calcium 8.1 mg/dL (8.6-10.3); Carbon Dioxide 14 mEq/L (23-29); Chloride 133 mEq/L (98-107); Glucose 191 mg/dL (70-105); Potassium 4.7 mEq/L (3.5-5.1); Sodium 157 mEq/L (136-145); eGFR For African Americans 17 (> 60); eGFR For Non-African Americans 14 (> 60)
[2020-02-22] MEDS: Phenylephrine 10 MG in 0.9 % Sodium Chloride 250 ML IVC SCH (20:15)
[2020-02-22 20:57] LABS: Hematocrit 21.8 % (37.5-50.1); Hemoglobin 6.7 g/dL (12.9-16.9)
[2020-02-22] MEDS ORDERED: *HR* Metoprolol 5 MG/5 ML VIAL IVP ONE (21:54)
[2020-02-22] MEDS: *HR* Metoprolol 5 MG/5 ML VIAL IVP SCH (21:56)
[2020-02-23] MEDS ORDERED: *HR* Metoprolol 5 MG/5 ML VIAL IVP ONE
[2020-02-23 00:03] LABS: Hematocrit 23.6 % (37.5-50.1); Hemoglobin 7.2 g/dL (12.9-16.9); Mean Corpuscular HGB Conc 30.5 g/dL (31.6-35.5); Mean Corpuscular Hemoglobin 27.9 pg (28.0-33.3); Mean Corpuscular Volume 91.5 fL (83.0-100.0); Mean Platelet Volume 10.9 fL (9.4-12.4); Platelet Count 264 K/mcL (140-400); Red Blood Count 2.58 M/mcL (4.19-5.50); Red Cell Distribution Width 16.6 % (11.5-14.5); White Blood Count 12.7 K/mcL (4.3-11.1)
[2020-02-23 00:30] LABS: Blood Urea Nitrogen > 130 mg/dL (8-23); Carbon Dioxide 15 mEq/L (23-29); Chloride 134 mEq/L (98-107); Glucose 313 mg/dL (70-105); Potassium 4.8 mEq/L (3.5-5.1); Sodium 156 mEq/L (136-145); eGFR For African Americans 17 (> 60); eGFR For Non-African Americans 14 (> 60)
[2020-02-23] MEDS: Insulin LISPRO 300 UNITS/3 ML VIAL SQ SCH ×6 (04:20→23:09)
[2020-02-23] MEDS: MetroNIDAZOLE 500 MG/100 ML 500 MG/100 ML BAG IVPB SCH ×3 (04:20→19:38)
[2020-02-23 04:27] LABS: Hematocrit 23.8 % (37.5-50.1); Hemoglobin 7.4 g/dL (12.9-16.9); Mean Corpuscular HGB Conc 31.1 g/dL (31.6-35.5); Mean Corpuscular Hemoglobin 28.7 pg (28.0-33.3); Mean Corpuscular Volume 92.2 fL (83.0-100.0); Mean Platelet Volume 11.1 fL (9.4-12.4); Platelet Count 273 K/mcL (140-400); Red Blood Count 2.58 M/mcL (4.19-5.50); Red Cell Distribution Width 16.9 % (11.5-14.5); White Blood Count 12.9 K/mcL (4.3-11.1)
[2020-02-23 04:47] LABS: Blood Urea Nitrogen > 130 mg/dL (8-23); Calcium 8.1 mg/dL (8.6-10.3); Carbon Dioxide 15 mEq/L (23-29); Chloride 134 mEq/L (98-107); Glucose 353 mg/dL (70-105); Magnesium 2.5 mg/dL (1.6-2.6); Phosphorous 5.3 mg/dL (2.7-4.5); Potassium 4.7 mEq/L (3.5-5.1); Sodium 154 mEq/L (136-145); eGFR For African Americans 17 (> 60); eGFR For Non-African Americans 14 (> 60)
[2020-02-23] MEDS: *HR* Metoprolol 5 MG/5 ML VIAL IVP SCH ×4 (05:50→23:09)
[2020-02-23] MEDS: Pantoprazole 40 MG VIAL IVP SCH ×2 (05:50→17:03)
[2020-02-23] MEDS: risperiDONE 0.25 MG TABLET PO SCH (07:44)
[2020-02-23] MEDS: Fluconazole 200 MG/100 ML 200 MG/100 ML BAG IVPB SCH (07:50)
[2020-02-23] MEDS: D5% in Water 1,000 ML IVC SCH ×2 (09:49→16:46)
[2020-02-23] MEDS ORDERED: 0.9 % Sodium Chloride 250 ML ONE (11:04)
[2020-02-23] MEDS: Cefepime HCl 1,000 MG in Water for inj. (sterile) 10 ML IVP SCH ×2 (12:09→23:09)
[2020-02-23] MEDS ORDERED: *HR* Phenylephrine 10 MG/ML VIAL IVC ONE (13:33)
[2020-02-23] MEDS ORDERED: *HR* Propofol 200 MG/20 ML VIAL IVP ONE (13:33)
[2020-02-23] MEDS ORDERED: Lidocaine 2% Syringe 100 MG/5 ML IV ONE (13:33)
[2020-02-23 13:44] LABS: Bilirubin,Urine Negative (Negative); Blood,Urine Moderate (Negative); Clarity,Urine Cloudy (Clear); Color,Urine Yellow (Yellow); Glucose,Urine (UA) 500 mg/dL (Normal); Ketones,Urine Negative (Negative); Leukocyte Esterase,Urine Negative (Negative); Nitrite,Urine Negative (Negative); Protein,Urine 30 mg/dL (Neg-Trace); Specific Gravity,Urine 1.021 (1.010-1.025); Urobilinogen,Urine Normal (Normal)
[2020-02-23 13:45] LABS: Bacteria,Urine None Seen per hpf (None-Few); Hyaline Casts,Urine Few per lpf (None-Few); Squamous Epithelial Cell,Urine Many per lpf (None-Few)
[2020-02-23 13:57] LABS: RBC,Urine 0-3 per hpf (0-3)
[2020-02-23 15:34] LABS: Calcium 8.1 mg/dL (8.6-10.3); Potassium 4.6 mEq/L (3.5-5.1)
[2020-02-23] MEDS ORDERED: Clinimix 5%-20% SOLUTION 2,000 ML with MVI, adult with vitamin K 10 ML, Sodium Chlori... IVC SCH (17:00)
[2020-02-23] MEDS: Phenylephrine 10 MG in 0.9 % Sodium Chloride 250 ML IVC SCH (20:32)
[2020-02-23 20:33] LABS: Hematocrit 25.3 % (37.5-50.1); Mean Corpuscular HGB Conc 31.6 g/dL (31.6-35.5); Mean Corpuscular Volume 91.7 fL (83.0-100.0); Mean Platelet Volume 10.6 fL (9.4-12.4); Platelet Count 246 K/mcL (140-400); Red Blood Count 2.76 M/mcL (4.19-5.50); Red Cell Distribution Width 17.7 % (11.5-14.5)
[2020-02-24 03:46] LABS: Hematocrit 24.3 % (37.5-50.1); Hemoglobin 7.7 g/dL (12.9-16.9); Mean Corpuscular HGB Conc 31.7 g/dL (31.6-35.5); Mean Corpuscular Hemoglobin 29.4 pg (28.0-33.3); Mean Corpuscular Volume 92.7 fL (83.0-100.0); Mean Platelet Volume 10.7 fL (9.4-12.4); Platelet Count 215 K/mcL (140-400); Red Blood Count 2.62 M/mcL (4.19-5.50); Red Cell Distribution Width 18.4 % (11.5-14.5); White Blood Count 15.1 K/mcL (4.3-11.1)
[2020-02-24] MEDS: MetroNIDAZOLE 500 MG/100 ML 500 MG/100 ML BAG IVPB SCH ×3 (03:52→20:12)
[2020-02-24] MEDS: Insulin LISPRO 300 UNITS/3 ML VIAL SQ SCH ×5 (03:53→20:15)
[2020-02-24 04:10] LABS: Magnesium 2.2 mg/dL (1.6-2.6); Phosphorous 4.4 mg/dL (2.7-4.5); Potassium 4.4 mEq/L (3.5-5.1)
[2020-02-24] MEDS: *HR* Metoprolol 5 MG/5 ML VIAL IVP SCH ×4 (05:26→16:52)
[2020-02-24] MEDS: Pantoprazole 40 MG VIAL IVP SCH ×2 (05:26→16:52)
[2020-02-24] MEDS: risperiDONE 0.25 MG TABLET PO SCH (07:27)
[2020-02-24] MEDS: Fluconazole 200 MG/100 ML 200 MG/100 ML BAG IVPB SCH (07:53)
[2020-02-24] MEDS ORDERED: Potassium Chloride 20 MEQ in D5% in Water 1,000 ML IVC SCH (09:15)
[2020-02-24] MEDS ORDERED: D5% in Water 1,000 ML IVC SCH (09:15)
[2020-02-24] MEDS ORDERED: Amiodarone Premix 360 MG/200 ML BAG IVC ONE (10:38)
[2020-02-24] MEDS ORDERED: Amiodarone Premix 150 MG/100 ML BAG IVPB ONE (10:38)
[2020-02-24] MEDS: Cefepime HCl 1,000 MG in Water for inj. (sterile) 10 ML IVP SCH (11:30)
[2020-02-24] MEDS ORDERED: Desitin (Zinc Oxide) 56 GM TUBE TP PRN (11:53)
[2020-02-24] MEDS ORDERED: D5% in Water 1,000 ML IVC PRN (11:53)
[2020-02-24] MEDS ORDERED: Potassium Phosphate 44 MEQ in 0.9 % Sodium Chloride 250 ML IVPB PRN (11:53)
[2020-02-24] MEDS ORDERED: D10% in Water 500 ML IVC PRN (11:53)
[2020-02-24] MEDS ORDERED: *HR* Dextrose 50 % in Water (Syg) 50 ML SYRINGE IVP PRN (11:53)
[2020-02-24] MEDS ORDERED: Dextrose Gel 15 GM/37.5 ML TUBE PO PRN ×2 (11:53)
[2020-02-24] MEDS ORDERED: Acetaminophen IV 1,000 MG/100 ML INFUS..BTL IVPB PRN (11:53)
[2020-02-24] MEDS ORDERED: Calcium Gluconate 1gm/50mL 1 GM/50 ML BAG IVPB PRN (11:53)
[2020-02-24] MEDS ORDERED: Clinimix 5%-20% SOLUTION 2,000 ML with MVI, adult with vitamin K 10 ML, Sodium Chlori... IVC SCH (11:53)
[2020-02-24] MEDS ORDERED: Naloxone 0.4 MG/ML INJ IVP PRN (11:53)
[2020-02-24] MEDS ORDERED: Insulin LISPRO 300 UNITS/3 ML VIAL SQ SCH (12:00)
[2020-02-24] MEDS: D5% in Water 1,000 ML IVC SCH ×2 (16:23→16:52)
[2020-02-24] MEDS: Amiodarone Premix 360 MG/200 ML BAG IVC SCH (16:48)
[2020-02-24] MEDS ORDERED: Clinimix E 5%-15% SOLUTION 2,000 ML with MVI, adult with vitamin K 10 ML IVC SCH ×2 (17:00)
[2020-02-24] MEDS ORDERED: Amiodarone Premix 360 MG/200 ML BAG IVC SCH (17:00)
[2020-02-24 17:47] LABS: Calcium 7.9 mg/dL (8.6-10.3); Potassium 4.6 mEq/L (3.5-5.1)
[2020-02-24] MEDS: Insulin DETEMIR 100 UNIT/ML X5UNITS SQ SCH (20:12)
[2020-02-24] MEDS ORDERED: Insulin DETEMIR 100 UNIT/ML X5UNITS SQ SCH (21:00)
[2020-02-25] MEDS: Cefepime HCl 1,000 MG in Water for inj. (sterile) 10 ML IVP SCH ×2 (00:58→11:07)
[2020-02-25] MEDS: Insulin LISPRO 300 UNITS/3 ML VIAL SQ SCH ×6 (00:59→21:03)
[2020-02-25] MEDS: *HR* Metoprolol 5 MG/5 ML VIAL IVP SCH ×4 (00:59→16:44)
[2020-02-25] MEDS: Amiodarone Premix 360 MG/200 ML BAG IVC SCH ×2 (03:31→16:02)
[2020-02-25] MEDS: D5% in Water 1,000 ML IVC SCH ×2 (03:32→13:37)
[2020-02-25] MEDS: MetroNIDAZOLE 500 MG/100 ML 500 MG/100 ML BAG IVPB SCH ×3 (03:32→20:52)
[2020-02-25 03:57] LABS: Hematocrit 22.7 % (37.5-50.1); Hemoglobin 6.9 g/dL (12.9-16.9); Mean Corpuscular HGB Conc 30.4 g/dL (31.6-35.5); Mean Corpuscular Hemoglobin 28.4 pg (28.0-33.3); Mean Corpuscular Volume 93.4 fL (83.0-100.0); Platelet Count 177 K/mcL (140-400); Red Blood Count 2.43 M/mcL (4.19-5.50); Red Cell Distribution Width 18.8 % (11.5-14.5); White Blood Count 12.3 K/mcL (4.3-11.1)
[2020-02-25 04:01] LABS: Magnesium 2.1 mg/dL (1.6-2.6); Phosphorous 4.4 mg/dL (2.7-4.5); Potassium 4.6 mEq/L (3.5-5.1)
[2020-02-25] MEDS: Pantoprazole 40 MG VIAL IVP SCH ×2 (06:00→16:44)
[2020-02-25] MEDS: Fluconazole 200 MG/100 ML 200 MG/100 ML BAG IVPB SCH (08:59)
[2020-02-25] MEDS: Insulin DETEMIR 100 UNIT/ML X5UNITS SQ SCH ×2 (09:05→21:03)
[2020-02-25] MEDS ORDERED: D10% in Water 500 ML IVC PRN (10:24)
[2020-02-25] MEDS ORDERED: 0.9 % Sodium Chloride 250 ML ONE ×2 (12:52→12:59)
[2020-02-25] MEDS ORDERED: D5% in Water 1,000 ML IVC PRN (13:57)
[2020-02-25 16:29] LABS: Hematocrit 23.9 % (37.5-50.1)
[2020-02-25] MEDS ORDERED: Clinimix E 5%-15% SOLUTION 2,000 ML with MVI, adult with vitamin K 10 ML IVC SCH (17:00)
[2020-02-25 17:06] LABS: Calcium 7.8 mg/dL (8.6-10.3); Potassium 4.4 mEq/L (3.5-5.1)
[2020-02-25] MEDS ORDERED: Insulin DETEMIR 100 UNIT/ML X5UNITS SQ ONE (17:50)
[2020-02-26] MEDS: *HR* Metoprolol 5 MG/5 ML VIAL IVP SCH ×4 (00:10→17:26)
[2020-02-26] MEDS: Cefepime HCl 1,000 MG in Water for inj. (sterile) 10 ML IVP SCH ×2 (00:10→11:47)
[2020-02-26] MEDS: Insulin LISPRO 300 UNITS/3 ML VIAL SQ SCH ×6 (00:11→20:19)
[2020-02-26] MEDS: Amiodarone Premix 360 MG/200 ML BAG IVC SCH (03:33)
[2020-02-26] MEDS: MetroNIDAZOLE 500 MG/100 ML 500 MG/100 ML BAG IVPB SCH ×3 (03:33→20:18)
[2020-02-26 03:51] LABS: Basophils % 0.4 %; Eosinophils # 0.1 K/mcL (0.0-0.6); Eosinophils % 0.4 %; Hematocrit 24.4 % (37.5-50.1); Hemoglobin 7.5 g/dL (12.9-16.9); Immature Granulocytes % 0.6 % (0-4); Lymphocytes # 0.8 K/mcL (0.6-4.6); Lymphocytes % 7.4 %; Mean Corpuscular HGB Conc 30.7 g/dL (31.6-35.5); Mean Corpuscular Hemoglobin 29.1 pg (28.0-33.3); Mean Corpuscular Volume 94.6 fL (83.0-100.0); Mean Platelet Volume 10.7 fL (9.4-12.4); Monocytes # 0.4 K/mcL (0.0-1.3); Monocytes % 3.3 %; Neutrophils # 9.9 K/mcL (1.6-8.9); Nucleated Red Blood Cells 0.4 /100 WBC (0); Platelet Count 148 K/mcL (140-400); Red Blood Count 2.58 M/mcL (4.19-5.50); Red Cell Distribution Width 18.6 % (11.5-14.5); Segmented Neutrophils % 87.9 %; White Blood Count 11.3 K/mcL (4.3-11.1)
[2020-02-26 04:04] LABS: VBG Ionized Calcium 1.31 mmol/L (1.15-1.35)
[2020-02-26 04:08] LABS: Albumin 2.4 g/dL (3.5-5.7); Calcium 8.4 mg/dL (8.6-10.3); Magnesium 2.1 mg/dL (1.6-2.6); Phosphorous 5.1 mg/dL (2.7-4.5); Potassium 4.7 mEq/L (3.5-5.1)
[2020-02-26] MEDS: Pantoprazole 40 MG VIAL IVP SCH ×2 (05:09→17:27)
[2020-02-26] MEDS: Fluconazole 200 MG/100 ML 200 MG/100 ML BAG IVPB SCH (08:08)
[2020-02-26] MEDS ORDERED: Insulin DETEMIR 100 UNIT/ML X5UNITS SQ SCH (09:00)
[2020-02-26] MEDS ORDERED: Clinimix E 5%-15% SOLUTION 2,000 ML with MVI, adult with vitamin K 10 ML IVC SCH (17:00)
[2020-02-26] MEDS ORDERED: Clinimix 5%-20% SOLUTION 2,000 ML with MVI, adult with vitamin K 10 ML, Sodium Phosph... IVC SCH (17:00)
[2020-02-26] MEDS: Insulin DETEMIR 100 UNIT/ML X5UNITS SQ SCH (20:19)
[2020-02-27] MEDS: *HR* Metoprolol 5 MG/5 ML VIAL IVP SCH ×5 (00:16→23:58)
[2020-02-27] MEDS: Insulin LISPRO 300 UNITS/3 ML VIAL SQ SCH ×6 (00:16→23:59)
[2020-02-27] MEDS: Cefepime HCl 1,000 MG in Water for inj. (sterile) 10 ML IVP SCH ×2 (00:17→11:54)
[2020-02-27] MEDS: MetroNIDAZOLE 500 MG/100 ML 500 MG/100 ML BAG IVPB SCH ×3 (04:12→20:39)
[2020-02-27] MEDS: Pantoprazole 40 MG VIAL IVP SCH ×2 (05:48→18:13)
[2020-02-27] MEDS: Amiodarone Premix 360 MG/200 ML BAG IVC SCH ×2 (05:58→18:13)
[2020-02-27 06:16] LABS: Potassium 4.9 mEq/L (3.5-5.1)
[2020-02-27 06:17] LABS: Calcium 8.5 mg/dL (8.6-10.3); Magnesium 2.1 mg/dL (1.6-2.6); Phosphorous 5.7 mg/dL (2.7-4.5)
[2020-02-27] MEDS: Fluconazole 200 MG/100 ML 200 MG/100 ML BAG IVPB SCH (07:33)
[2020-02-27] MEDS: Insulin DETEMIR 100 UNIT/ML X5UNITS SQ SCH ×2 (07:34→20:39)
[2020-02-27] MEDS ORDERED: Clinimix 5%-20% SOLUTION 2,000 ML, Parenteral Amino Acid 10% 0 ML with MVI, adult with... IVC SCH (17:00)
[2020-02-27] MEDS ORDERED: Clinimix E 5%-15% SOLUTION 2,000 ML with MVI, adult with vitamin K 10 ML IVC SCH (17:00)
[2020-02-27] MEDS ORDERED: Clinimix 5%-20% SOLUTION 2,000 ML with MVI, adult with vitamin K 10 ML, Sodium Phosph... IVC SCH ×2 (17:00)
[2020-02-28] MEDS: Cefepime HCl 1,000 MG in Water for inj. (sterile) 10 ML IVP SCH ×3 (00:20→23:59)
[2020-02-28] MEDS: MetroNIDAZOLE 500 MG/100 ML 500 MG/100 ML BAG IVPB SCH ×3 (03:20→20:53)
[2020-02-28 04:17] LABS: Basophils % 0.4 %; Eosinophils # 0.1 K/mcL (0.0-0.6); Eosinophils % 0.6 %; Hematocrit 25.5 % (37.5-50.1); Hemoglobin 7.7 g/dL (12.9-16.9); Immature Granulocytes % 0.2 % (0-4); Lymphocytes # 0.7 K/mcL (0.6-4.6); Lymphocytes % 7.8 %; Mean Corpuscular HGB Conc 30.2 g/dL (31.6-35.5); Mean Corpuscular Hemoglobin 28.9 pg (28.0-33.3); Mean Corpuscular Volume 95.9 fL (83.0-100.0); Monocytes # 0.3 K/mcL (0.0-1.3); Monocytes % 3.8 %; Neutrophils # 7.8 K/mcL (1.6-8.9); Nucleated Red Blood Cells 0.2 /100 WBC (0); Platelet Count 130 K/mcL (140-400); Red Blood Count 2.66 M/mcL (4.19-5.50); Red Cell Distribution Width 19.4 % (11.5-14.5); Segmented Neutrophils % 87.2 %
[2020-02-28 04:21] LABS: INR 1.6; Prothrombin Time 18.4 Seconds (9.4-12.1)
[2020-02-28 04:38] LABS: Calcium 8.4 mg/dL (8.6-10.3); Magnesium 2.1 mg/dL (1.6-2.6); Phosphorous 5.8 mg/dL (2.7-4.5); Potassium 4.8 mEq/L (3.5-5.1)
[2020-02-28 05:58] LABS: VBG Ionized Calcium 1.28 mmol/L (1.15-1.35)
[2020-02-28] MEDS: *HR* Metoprolol 5 MG/5 ML VIAL IVP SCH ×2 (06:19→13:21)
[2020-02-28] MEDS: Pantoprazole 40 MG VIAL IVP SCH ×2 (06:19→18:07)
[2020-02-28] MEDS: Insulin LISPRO 300 UNITS/3 ML VIAL SQ SCH ×3 (06:21→18:07)
[2020-02-28] MEDS ORDERED: 0.9 % Sodium Chloride 250 ML IVC PRN (07:06)
[2020-02-28] MEDS ORDERED: 0.9 % Sodium Chloride 1,000 ML PRIME SCH (07:15)
[2020-02-28] MEDS: Fluconazole 200 MG/100 ML 200 MG/100 ML BAG IVPB SCH (08:24)
[2020-02-28] MEDS: Insulin DETEMIR 100 UNIT/ML X5UNITS SQ SCH ×2 (08:30→20:53)
[2020-02-28] MEDS ORDERED: *HR* Heparin 5,000 UNIT/ML VIAL ONE (09:55)
[2020-02-28] MEDS ORDERED: *HR* Heparin 10,000 UNIT/10 ML VIAL IV PRN (11:07)
[2020-02-28] MEDS: Amiodarone Premix 360 MG/200 ML BAG IVC SCH (18:13)
[2020-02-28] MEDS: Lactobacillus 1 EACH CAP.SPRINK PO SCH (20:53)
[2020-02-29] MEDS: MetroNIDAZOLE 500 MG/100 ML 500 MG/100 ML BAG IVPB SCH ×3 (04:28→20:10)
[2020-02-29 05:05] LABS: Basophils % 0.4 %; Eosinophils # 0.1 K/mcL (0.0-0.6); Eosinophils % 0.6 %; Hematocrit 23.5 % (37.5-50.1); Hemoglobin 7.3 g/dL (12.9-16.9); Immature Granulocytes % 0.4 % (0-4); Lymphocytes # 0.6 K/mcL (0.6-4.6); Lymphocytes % 7.9 %; Mean Corpuscular HGB Conc 31.1 g/dL (31.6-35.5); Mean Corpuscular Hemoglobin 28.4 pg (28.0-33.3); Mean Corpuscular Volume 91.4 fL (83.0-100.0); Mean Platelet Volume 11.3 fL (9.4-12.4); Monocytes # 0.3 K/mcL (0.0-1.3); Monocytes % 4.2 %; Nucleated Red Blood Cells 0.7 /100 WBC (0); Platelet Count 124 K/mcL (140-400); Red Blood Count 2.57 M/mcL (4.19-5.50); Red Cell Distribution Width 19.1 % (11.5-14.5); Segmented Neutrophils % 86.5 %; White Blood Count 8.1 K/mcL (4.3-11.1)
[2020-02-29 05:21] LABS: Calcium 7.9 mg/dL (8.6-10.3); Magnesium 1.8 mg/dL (1.6-2.6); Phosphorous 5.4 mg/dL (2.7-4.5); Potassium 3.8 mEq/L (3.5-5.1)
[2020-02-29] MEDS: Insulin LISPRO 300 UNITS/3 ML VIAL SQ SCH ×5 (05:27→23:39)
[2020-02-29] MEDS: Pantoprazole 40 MG VIAL IVP SCH ×2 (05:27→17:28)
[2020-02-29] MEDS ORDERED: Albumin 25% 25gram/100mL 25 GM/100 ML IV.SOLN IVPB PRN (07:24)
[2020-02-29] MEDS ORDERED: 0.9 % Sodium Chloride 250 ML IVC PRN (07:24)
[2020-02-29] MEDS ORDERED: *HR* Heparin 10,000 UNIT/10 ML VIAL IV PRN (10:28)
[2020-02-29] MEDS ORDERED: 0.9 % Sodium Chloride 250 ML ONE (11:48)
[2020-02-29] MEDS: Cefepime HCl 1,000 MG in Water for inj. (sterile) 10 ML IVP SCH ×2 (12:10→22:58)
[2020-02-29] MEDS: Insulin DETEMIR 100 UNIT/ML X5UNITS SQ SCH ×2 (12:42→22:53)
[2020-02-29] MEDS: Lactobacillus 1 EACH CAP.SPRINK PO SCH ×2 (12:42→20:09)
[2020-02-29] MEDS: Fluconazole 200 MG/100 ML 200 MG/100 ML BAG IVPB SCH (15:40)
[2020-02-29 17:09] LABS: Hematocrit 25.3 % (37.5-50.1)
[2020-02-29] MEDS: Amiodarone Premix 360 MG/200 ML BAG IVC SCH (20:09)
[2020-03-01] MEDS: MetroNIDAZOLE 500 MG/100 ML 500 MG/100 ML BAG IVPB SCH (03:05)
[2020-03-01] MEDS: *HR* Metoprolol 5 MG/5 ML VIAL IVP PRN ×2 (03:18→20:05)
[2020-03-01 03:48] LABS: Basophils % 0.3 %; Eosinophils % 0.5 %; Hemoglobin 7.8 g/dL (12.9-16.9); Immature Granulocytes % 0.4 % (0-4); Lymphocytes # 0.4 K/mcL (0.6-4.6); Lymphocytes % 5.2 %; Mean Corpuscular HGB Conc 31.2 g/dL (31.6-35.5); Mean Corpuscular Hemoglobin 28.3 pg (28.0-33.3); Mean Corpuscular Volume 90.6 fL (83.0-100.0); Mean Platelet Volume 11.4 fL (9.4-12.4); Monocytes # 0.2 K/mcL (0.0-1.3); Monocytes % 3.2 %; Neutrophils # 6.8 K/mcL (1.6-8.9); Nucleated Red Blood Cells 0.3 /100 WBC (0); Platelet Count 117 K/mcL (140-400); Red Blood Count 2.76 M/mcL (4.19-5.50); Red Cell Distribution Width 18.3 % (11.5-14.5); Segmented Neutrophils % 90.4 %; White Blood Count 7.5 K/mcL (4.3-11.1)
[2020-03-01 04:07] LABS: Calcium 7.6 mg/dL (8.6-10.3); Magnesium 1.8 mg/dL (1.6-2.6); Phosphorous 5.6 mg/dL (2.7-4.5); Potassium 3.8 mEq/L (3.5-5.1)
[2020-03-01 05:30] LABS: Platelet Estimate Slight Decrease (Normal)
[2020-03-01] MEDS: Pantoprazole 40 MG VIAL IVP SCH (05:57)
[2020-03-01] MEDS ORDERED: 0.9 % Sodium Chloride 250 ML IVC PRN (07:24)
[2020-03-01] MEDS: Lactobacillus 1 EACH CAP.SPRINK PO SCH ×2 (08:14→20:04)
[2020-03-01] MEDS: Insulin DETEMIR 100 UNIT/ML X5UNITS SQ SCH ×2 (08:17→20:05)
[2020-03-01] MEDS: Insulin LISPRO 300 UNITS/3 ML VIAL SQ SCH ×4 (08:24→22:36)
[2020-03-01] MEDS: Amiodarone Premix 360 MG/200 ML BAG IVC SCH (08:31)
[2020-03-01] MEDS ORDERED: Acetaminophen 650 MG RECTAL SUPP RC PRN (09:24)
[2020-03-01] MEDS ORDERED: *HR* Heparin 10,000 UNIT/10 ML VIAL IV PRN (11:18)
[2020-03-01] MEDS: Cefepime HCl 1,000 MG in Water for inj. (sterile) 10 ML IVP SCH (14:40)
[2020-03-01] MEDS: metroNIDAZOLE 500 MG TABLET PO SCH ×3 (14:41→20:05)
[2020-03-01] MEDS: Metoprolol XL (24 HR) Succ 25 MG TAB.ER.24H PO SCH (14:41)
[2020-03-01] MEDS: *HR* Amiodarone 200 MG TABLET PO SCH (14:42)
[2020-03-01] MEDS ORDERED: Metoprolol XL (24 HR) Succ 25 MG TAB.ER.24H PO ONE (22:13)
[2020-03-02 03:55] LABS: Basophils % 0.4 %; Eosinophils # 0.1 K/mcL (0.0-0.6); Eosinophils % 1.9 %; Hematocrit 23.2 % (37.5-50.1); Hemoglobin 7.3 g/dL (12.9-16.9); Immature Granulocytes % 0.4 % (0-4); Lymphocytes # 0.7 K/mcL (0.6-4.6); Lymphocytes % 13.6 %; Mean Corpuscular HGB Conc 31.5 g/dL (31.6-35.5); Mean Corpuscular Hemoglobin 28.4 pg (28.0-33.3); Mean Corpuscular Volume 90.3 fL (83.0-100.0); Mean Platelet Volume 11.2 fL (9.4-12.4); Monocytes # 0.3 K/mcL (0.0-1.3); Neutrophils # 4.1 K/mcL (1.6-8.9); Platelet Count 119 K/mcL (140-400); Red Blood Count 2.57 M/mcL (4.19-5.50); Red Cell Distribution Width 17.8 % (11.5-14.5); Segmented Neutrophils % 78.7 %; White Blood Count 5.2 K/mcL (4.3-11.1)
[2020-03-02 04:18] LABS: Calcium 7.6 mg/dL (8.6-10.3); Magnesium 1.9 mg/dL (1.6-2.6); Potassium 3.3 mEq/L (3.5-5.1)
[2020-03-02 04:41] LABS: Folate 9.5 ng/mL (3.0-16.0)
[2020-03-02] MEDS: Metoprolol XL (24 HR) Succ 25 MG TAB.ER.24H PO SCH ×2 (06:13→10:24)
[2020-03-02] MEDS: Lactobacillus 1 EACH CAP.SPRINK PO SCH ×2 (08:25→21:55)
[2020-03-02] MEDS: metroNIDAZOLE 500 MG TABLET PO SCH ×3 (08:25→21:55)
[2020-03-02] MEDS: *HR* Amiodarone 200 MG TABLET PO SCH (08:25)
[2020-03-02] MEDS: Insulin LISPRO 300 UNITS/3 ML VIAL SQ SCH ×4 (08:26→21:17)
[2020-03-02] MEDS: Insulin DETEMIR 100 UNIT/ML X5UNITS SQ SCH ×2 (08:26→21:55)
[2020-03-02] MEDS ORDERED: Potassium Chloride Elixir 20 MEQ/15 ML UDC PO ONE (08:35)
[2020-03-02] MEDS ORDERED: *HR* Digoxin 0.125 MG TABLET PO ONE (09:00)
[2020-03-02] MEDS: Sodium Ferric Gluconat/Sucrose 125 MG in 0.9 % Sodium Chloride 100 ML IVPB SCH (11:05)
[2020-03-02] MEDS: Cefepime HCl 1,000 MG in Water for inj. (sterile) 10 ML IVP SCH ×3 (11:07→23:51)
[2020-03-02] MEDS ORDERED: E-Z-HD (BARIUM SULF) SUSPENSION PO ONE (11:25)
[2020-03-02] MEDS ORDERED: E-Z-PAQUE (BARIUM SULF) SUSP 1 BOTTLE PO ONE (11:25)
[2020-03-02] MEDS ORDERED: Metoprolol XL (24 HR) Succ 25 MG TAB.ER.24H PO ONE (12:19)
[2020-03-03 07:29] LABS: Basophils % 0.5 %; Eosinophils # 0.2 K/mcL (0.0-0.6); Eosinophils % 3.4 %; Hematocrit 24.6 % (37.5-50.1); Hemoglobin 7.5 g/dL (12.9-16.9); Immature Granulocytes % 0.2 % (0-4); Lymphocytes # 0.9 K/mcL (0.6-4.6); Lymphocytes % 15.6 %; Mean Corpuscular HGB Conc 30.5 g/dL (31.6-35.5); Mean Corpuscular Hemoglobin 28.1 pg (28.0-33.3); Mean Corpuscular Volume 92.1 fL (83.0-100.0); Mean Platelet Volume 11.4 fL (9.4-12.4); Monocytes # 0.3 K/mcL (0.0-1.3); Monocytes % 5.6 %; Neutrophils # 4.2 K/mcL (1.6-8.9); Platelet Count 144 K/mcL (140-400); Red Blood Count 2.67 M/mcL (4.19-5.50); Red Cell Distribution Width 17.6 % (11.5-14.5); Segmented Neutrophils % 74.7 %; White Blood Count 5.6 K/mcL (4.3-11.1)
[2020-03-03] MEDS: metroNIDAZOLE 500 MG TABLET PO SCH ×3 (07:55→21:58)
[2020-03-03] MEDS: Metoprolol XL (24 HR) Succ 25 MG TAB.ER.24H PO SCH (07:55)
[2020-03-03] MEDS: *HR* Amiodarone 200 MG TABLET PO SCH (07:55)
[2020-03-03] MEDS: Insulin DETEMIR 100 UNIT/ML X5UNITS SQ SCH ×2 (07:56→21:59)
[2020-03-03] MEDS: Lactobacillus 1 EACH CAP.SPRINK PO SCH ×2 (07:56→21:58)
[2020-03-03 08:00] LABS: Potassium 4.3 mEq/L (3.5-5.1)
[2020-03-03 08:01] LABS: Calcium 7.9 mg/dL (8.6-10.3); Phosphorous 7.3 mg/dL (2.7-4.5)
[2020-03-03] MEDS: Insulin LISPRO 300 UNITS/3 ML VIAL SQ SCH ×4 (08:19→21:58)
[2020-03-03] MEDS: Sodium Ferric Gluconat/Sucrose 125 MG in 0.9 % Sodium Chloride 100 ML IVPB SCH (08:21)
[2020-03-03] MEDS ORDERED: DilTIAZem CD (24hr) 120 MG CAP.ER.24H PO SCH (09:00)
[2020-03-03] MEDS ORDERED: 0.9 % Sodium Chloride 250 ML ONE (09:36)
[2020-03-03] MEDS ORDERED: Metoprolol XL (24 HR) Succ 25 MG TAB.ER.24H PO ONE (10:23)
[2020-03-03] MEDS: Cefepime HCl 1,000 MG in Water for inj. (sterile) 10 ML IVP SCH (11:50)
[2020-03-04] MEDS: Cefepime HCl 1,000 MG in Water for inj. (sterile) 10 ML IVP SCH ×2 (00:05→12:58)
[2020-03-04 02:21] LABS: Basophils % 0.6 %; Eosinophils # 0.2 K/mcL (0.0-0.6); Eosinophils % 4.8 %; Hematocrit 25.7 % (37.5-50.1); Immature Granulocytes % 0.2 % (0-4); Lymphocytes # 0.7 K/mcL (0.6-4.6); Lymphocytes % 14.9 %; Mean Corpuscular HGB Conc 31.1 g/dL (31.6-35.5); Mean Corpuscular Hemoglobin 28.1 pg (28.0-33.3); Mean Corpuscular Volume 90.2 fL (83.0-100.0); Mean Platelet Volume 10.9 fL (9.4-12.4); Monocytes # 0.3 K/mcL (0.0-1.3); Monocytes % 5.6 %; Neutrophils # 3.6 K/mcL (1.6-8.9); Platelet Count 160 K/mcL (140-400); Red Blood Count 2.85 M/mcL (4.19-5.50); Red Cell Distribution Width 17.2 % (11.5-14.5); Segmented Neutrophils % 73.9 %; White Blood Count 4.8 K/mcL (4.3-11.1)
[2020-03-04 02:31] LABS: Calcium 7.8 mg/dL (8.6-10.3); Magnesium 1.9 mg/dL (1.6-2.6); Potassium 4.3 mEq/L (3.5-5.1)
[2020-03-04] MEDS: Insulin LISPRO 300 UNITS/3 ML VIAL SQ SCH ×4 (08:19→20:39)
[2020-03-04] MEDS ORDERED: *HR* Heparin 10,000 UNIT/10 ML VIAL IV PRN (09:14)
[2020-03-04] MEDS ORDERED: 0.9 % Sodium Chloride 250 ML IVC PRN (09:14)
[2020-03-04] MEDS ORDERED: 0.9 % Sodium Chloride 1,000 ML PRIME SCH (09:15)
[2020-03-04] MEDS: metroNIDAZOLE 500 MG TABLET PO SCH ×3 (09:24→20:39)
[2020-03-04] MEDS: DilTIAZem CD (24hr) 180 MG CAP.ER.24H PO SCH (09:25)
[2020-03-04] MEDS: Lactobacillus 1 EACH CAP.SPRINK PO SCH ×2 (09:25→20:38)
[2020-03-04] MEDS: Metoprolol XL (24 HR) Succ 25 MG TAB.ER.24H PO SCH (09:25)
[2020-03-04] MEDS: Sodium Ferric Gluconat/Sucrose 125 MG in 0.9 % Sodium Chloride 100 ML IVPB SCH (09:51)
[2020-03-04] MEDS: Insulin DETEMIR 100 UNIT/ML X5UNITS SQ SCH ×2 (09:51→20:39)
[2020-03-04] MEDS ORDERED: *HR* Alteplase (Cathflo) 2 MG VIAL IVP PRN (11:12)
[2020-03-05] MEDS ORDERED: *HR* Metoprolol 5 MG/5 ML VIAL IVP ONE ×2 (00:25→23:10)
[2020-03-05] MEDS: Insulin LISPRO 300 UNITS/3 ML VIAL SQ SCH ×4 (07:37→22:42)
[2020-03-05 08:14] LABS: Basophils % 0.6 %; Eosinophils # 0.2 K/mcL (0.0-0.6); Eosinophils % 4.8 %; Hematocrit 28.2 % (37.5-50.1); Hemoglobin 8.4 g/dL (12.9-16.9); Immature Granulocytes % 2.2 % (0-4); Lymphocytes # 0.4 K/mcL (0.6-4.6); Lymphocytes % 7.8 %; Mean Corpuscular HGB Conc 29.8 g/dL (31.6-35.5); Mean Corpuscular Hemoglobin 27.7 pg (28.0-33.3); Mean Corpuscular Volume 93.1 fL (83.0-100.0); Mean Platelet Volume 10.8 fL (9.4-12.4); Monocytes # 0.4 K/mcL (0.0-1.3); Monocytes % 8.6 %; Neutrophils # 3.8 K/mcL (1.6-8.9); Platelet Count 191 K/mcL (140-400); Red Blood Count 3.03 M/mcL (4.19-5.50); Red Cell Distribution Width 17.3 % (11.5-14.5)
[2020-03-05] MEDS: DilTIAZem CD (24hr) 180 MG CAP.ER.24H PO SCH (08:19)
[2020-03-05] MEDS: Lactobacillus 1 EACH CAP.SPRINK PO SCH ×2 (08:19→21:03)
[2020-03-05] MEDS: metroNIDAZOLE 500 MG TABLET PO SCH ×3 (08:20→21:04)
[2020-03-05] MEDS: Cholecalciferol (D-3) 1,000 UNIT (25MCG) TABLET PO SCH (08:20)
[2020-03-05 08:30] LABS: Calcium 8.1 mg/dL (8.6-10.3); Potassium 4.6 mEq/L (3.5-5.1)
[2020-03-05] MEDS ORDERED: Metoprolol XL (24 HR) Succ 25 MG TAB.ER.24H PO SCH (09:00)
[2020-03-05] MEDS: Sodium Ferric Gluconat/Sucrose 125 MG in 0.9 % Sodium Chloride 100 ML IVPB SCH (10:06)
[2020-03-05] MEDS: Insulin DETEMIR 100 UNIT/ML X5UNITS SQ SCH ×2 (10:11→22:43)
[2020-03-05] MEDS: Cefepime HCl 1,000 MG in Water for inj. (sterile) 10 ML IVP SCH (11:37)
[2020-03-06 02:12] LABS: Hemoglobin 7.4 g/dL (12.9-16.9); Mean Corpuscular HGB Conc 29.6 g/dL (31.6-35.5); Mean Corpuscular Hemoglobin 27.8 pg (28.0-33.3); Mean Platelet Volume 10.7 fL (9.4-12.4); Platelet Count 220 K/mcL (140-400); Red Blood Count 2.66 M/mcL (4.19-5.50); Red Cell Distribution Width 17.4 % (11.5-14.5); White Blood Count 5.3 K/mcL (4.3-11.1)
[2020-03-06 02:31] LABS: Calcium 8.1 mg/dL (8.6-10.3)
[2020-03-06 02:34] LABS: INR 1.7; Prothrombin Time 19.5 Seconds (9.4-12.1)
[2020-03-06] MEDS ORDERED: *HR* Metoprolol 5 MG/5 ML VIAL IVP ONE (07:45)
[2020-03-06] MEDS ORDERED: *HR* Heparin 10,000 UNIT/10 ML VIAL IV PRN (07:47)
[2020-03-06] MEDS ORDERED: 0.9 % Sodium Chloride 250 ML IVC PRN (07:47)
[2020-03-06] MEDS ORDERED: 0.9 % Sodium Chloride 1,000 ML PRIME SCH (08:00)
[2020-03-06] MEDS: DilTIAZem CD (24hr) 180 MG CAP.ER.24H PO SCH (08:45)
[2020-03-06] MEDS: Insulin LISPRO 300 UNITS/3 ML VIAL SQ SCH ×4 (08:45→20:45)
[2020-03-06] MEDS: Sodium Ferric Gluconat/Sucrose 125 MG in 0.9 % Sodium Chloride 100 ML IVPB SCH (08:46)
[2020-03-06] MEDS: metroNIDAZOLE 500 MG TABLET PO SCH ×3 (08:46→20:39)
[2020-03-06] MEDS: Metoprolol XL (24 HR) Succ 25 MG TAB.ER.24H PO SCH (08:46)
[2020-03-06] MEDS: Cholecalciferol (D-3) 1,000 UNIT (25MCG) TABLET PO SCH (08:46)
[2020-03-06] MEDS: Lactobacillus 1 EACH CAP.SPRINK PO SCH ×2 (08:46→20:39)
[2020-03-06] MEDS: Insulin DETEMIR 100 UNIT/ML X5UNITS SQ SCH ×2 (08:46→20:46)
[2020-03-06] MEDS ORDERED: Metoprolol XL (24 HR) Succ 50 MG TAB.ER.24H PO SCH (09:00)
[2020-03-06] MEDS ORDERED: 0.9 % Sodium Chloride 250 ML ONE ×2 (10:55→12:26)
[2020-03-06 11:05] LABS: C.difficile Toxin A/B Gene PCR Not detected (Not detect); Campylobacter by PCR Not detected (Not detect); Cryptosporidium by PCR Not detected (Not detect); Cyclospora cayetanensis PCR Not detected (Not detect); E. coli O157 by PCR Not detected (Not detect); Entamoeba histolytica PCR Not detected (Not detect); Enteroaggregative E.coli(EAEC) Not detected (Not detect); Enteropathogenic E.coli(EPEC) Not detected (Not detect); Enterotoxigenic E.coli (ETEC) Not detected (Not detect); Plesiomonas shigelloides PCR Not detected (Not detect); Salmonella PCR Not detected (Not detect); Shig/EnteroinvasiveE coli EIEC Not detected (Not detect); Shigalike tox-prod E coli STEC Not detected (Not detect); Vibrio PCR Not detected (Not detect); Vibrio cholerae PCR Not detected (Not detect); Yersinia enterocolitica PCR Not detected (Not detect)
[2020-03-06 11:06] LABS: Adenovirus F 40/41 PCR Not detected (Not detect); Astrovirus PCR Not detected (Not detect); Giardia lamblia PCR Not detected (Not detect); Norovirus GI/GII PCR Not detected (Not detect); Rotavirus A PCR Not detected (Not detect); Sapovirus PCR Not detected (Not detect)
[2020-03-06] MEDS ORDERED: Heparin 1,000 UNITS/500 mL 500 ML ONE (11:12)
[2020-03-06] MEDS ORDERED: *HR* Heparin 5,000 UNIT/ML VIAL ONE (11:54)
[2020-03-06] MEDS ORDERED: Albumin 25% 25gram/100mL 25 GM/100 ML IV.SOLN IVPB ONE (12:32)
[2020-03-06] MEDS: Cefepime HCl 1,000 MG in Water for inj. (sterile) 10 ML IVP SCH ×2 (13:22→17:54)
[2020-03-06] MEDS ORDERED: Levalbuterol Neb 1.25 MG/3 ML ONE (19:55)
[2020-03-06] MEDS ORDERED: Levalbuterol Neb 1.25 MG/3 ML IH ONE (19:58)
[2020-03-06] MEDS ORDERED: Levalbuterol Neb 1.25 MG/3 ML IH PRN (20:32)
[2020-03-06 20:34] LABS: VBG HCO3 22 mEq/L (21-27); VBG PCO2 31 mmHg (41-51); VBG PH 7.45 pH Units (7.32-7.42); VBG PO2 171 mmHg (25-50)
[2020-03-06] MEDS: *HR* Metoprolol 5 MG/5 ML VIAL IVP PRN (20:47)
[2020-03-07 01:58] LABS: Hematocrit 24.8 % (37.5-50.1); Hemoglobin 7.4 g/dL (12.9-16.9); Mean Corpuscular HGB Conc 29.8 g/dL (31.6-35.5); Mean Corpuscular Hemoglobin 27.1 pg (28.0-33.3); Mean Corpuscular Volume 90.8 fL (83.0-100.0); Mean Platelet Volume 10.7 fL (9.4-12.4); Platelet Count 195 K/mcL (140-400); Red Blood Count 2.73 M/mcL (4.19-5.50); White Blood Count 5.6 K/mcL (4.3-11.1)
[2020-03-07 02:16] LABS: Calcium 8.1 mg/dL (8.6-10.3); Potassium 4.2 mEq/L (3.5-5.1)
[2020-03-07] MEDS: Lactobacillus 1 EACH CAP.SPRINK PO SCH ×2 (08:24→19:54)
[2020-03-07] MEDS: *HR* Metoprolol 5 MG/5 ML VIAL IVP PRN (08:24)
[2020-03-07] MEDS: Sodium Ferric Gluconat/Sucrose 125 MG in 0.9 % Sodium Chloride 100 ML IVPB SCH (08:24)
[2020-03-07] MEDS: Insulin LISPRO 300 UNITS/3 ML VIAL SQ SCH ×3 (08:25→16:00)
[2020-03-07] MEDS: metroNIDAZOLE 500 MG TABLET PO SCH ×3 (08:25→19:54)
[2020-03-07] MEDS: DilTIAZem CD (24hr) 180 MG CAP.ER.24H PO SCH (08:25)
[2020-03-07] MEDS: Insulin DETEMIR 100 UNIT/ML X5UNITS SQ SCH ×2 (08:25→19:54)
[2020-03-07] MEDS: Cholecalciferol (D-3) 1,000 UNIT (25MCG) TABLET PO SCH (08:26)
[2020-03-07] MEDS: Metoprolol XL (24 HR) Succ 25 MG TAB.ER.24H PO SCH (08:26)
[2020-03-07] MEDS: *HR* Metoprolol 5 MG/5 ML VIAL IVP SCH ×3 (12:36→23:59)
[2020-03-07] MEDS ORDERED: Furosemide 40 MG/4 ML VIAL IVP ONE (12:42)
[2020-03-07] MEDS: Cefepime HCl 1,000 MG in Water for inj. (sterile) 10 ML IVP SCH (16:47)
[2020-03-07] MEDS: *HR* LORazepam 2 MG/ML VIAL IVP PRN (16:47)
[2020-03-07] MEDS: Atropine Sulfate 1% 40 DROP/2 ML BOTTLE SL PRN (16:48)
[2020-03-07] MEDS ORDERED: Scopolamine Patch 1.5 MG PATCH.TD72 TD ONE (20:30)
[2020-03-07] MEDS ORDERED: Insulin LISPRO 300 UNITS/3 ML VIAL SQ SCH (21:00)
[2020-03-08] MEDS: Atropine Sulfate 1% 40 DROP/2 ML BOTTLE SL PRN ×2 (00:02→06:32)
[2020-03-08 02:12] LABS: Hematocrit 22.1 % (37.5-50.1); Hemoglobin 6.8 g/dL (12.9-16.9); Mean Corpuscular HGB Conc 30.8 g/dL (31.6-35.5); Mean Corpuscular Hemoglobin 27.9 pg (28.0-33.3); Mean Corpuscular Volume 90.6 fL (83.0-100.0); Mean Platelet Volume 10.7 fL (9.4-12.4); Platelet Count 231 K/mcL (140-400); Red Blood Count 2.44 M/mcL (4.19-5.50); Red Cell Distribution Width 18.9 % (11.5-14.5); White Blood Count 5.9 K/mcL (4.3-11.1)
[2020-03-08 02:33] LABS: Calcium 8.2 mg/dL (8.6-10.3); Potassium 4.9 mEq/L (3.5-5.1)
[2020-03-08] MEDS: *HR* Metoprolol 5 MG/5 ML VIAL IVP SCH ×2 (05:18→11:59)
[2020-03-08 07:20] VITALS: BP 99/66
[2020-03-08] MEDS: Insulin LISPRO 300 UNITS/3 ML VIAL SQ SCH ×2 (07:29→09:23)
[2020-03-08] MEDS: Insulin DETEMIR 100 UNIT/ML X5UNITS SQ SCH (07:30)
[2020-03-08] MEDS: Cholecalciferol (D-3) 1,000 UNIT (25MCG) TABLET PO SCH (07:30)
[2020-03-08] MEDS: Lactobacillus 1 EACH CAP.SPRINK PO SCH (07:30)
[2020-03-08] MEDS: metroNIDAZOLE 500 MG TABLET PO SCH (07:30)
[2020-03-08] MEDS: DilTIAZem CD (24hr) 180 MG CAP.ER.24H PO SCH (07:30)
[2020-03-08] MEDS: *HR* LORazepam 2 MG/ML VIAL IVP PRN (07:47)
[2020-03-08] MEDS: Sodium Ferric Gluconat/Sucrose 125 MG in 0.9 % Sodium Chloride 100 ML IVPB SCH (07:49)
[2020-03-08] MEDS ORDERED: Metoprolol XL (24 HR) Succ 50 MG TAB.ER.24H PO SCH (09:00)
== END 2020-03-08 18:00 | disposition expired | DRG 853 ==
LOC: EMEROOARM 15:54 → 2NNU 15:54 → SUATTDRO 19:52 → 2NNU 20:00 → ICNU 02-14 16:21 → 2NNU 02-24 13:43 → 2NENU 02-25 20:03 → 3NENU 02-28 15:54 → 2ANU 03-02 13:17
PROVIDERS: ADMIT Family Medicine; ATTEND Internal Medicine
PROC: ENDOEBX (2020-02-18 08:00)
PROC: IRPERMA (2020-03-06 10:00)